=== PATIENT | male | born 1935 | race Caucasian/White ===

== ENCOUNTER → 2016-09-14 | Outpatient (CLI) | payer MEDICARE ==
[~2016-09-14] MED LIST: AMIO200T2 PO; ASPI-983 PO; ASPI-999 PO; ATOR40TA70 PO; CARV3.122 PO; CATHETER FLUSH 10 ML SYR IV PRN; CYAN10006 PO; FERR-74 PO; FINA5TAB6 PO; LEVO100T7 PO; LOSA25TA21 PO; REGADENOSON 0.4 MG/5 ML SYR (LEXISCAN) IV ONE; TAMS0.4C98 PO
[2016-09-14 09:56] VITALS: BP 145/77
[2016-09-14 10:06] VITALS: BP 154/76
--- NOTE | 2016-09-15 07:09 | STRESS TEST ---
DATE OF SERVICE: 09/14/2016 PROCEDURE: Resting and post regadenoson technetium-99M tetrofosmin SPECT CT imaging. CLINICAL DIAGNOSIS: Coronary artery disease. ORDERING PHYSICIAN: Dr. Duff. PRIMARY PHYSICIAN: Baseline images were carried out after injection of 10.51 mCi of technetium-99M tetrofosmin. This was followed by 0.4 mg regadenoson and 30.7 mCi technetium-99M tetrofosmin for stress imaging. The electrocardiogram showed atrial fibrillation with a controlled ventricular response. There appeared to be intermittent ventricular pacing. Review of images at rest and following stress indicates basal inferolateral akinesis and a fixed perfusion defect. There is global hypokinesis of the left ventricle. Left ventricular ejection fraction is calculated to be 26%. Left ventricular end diastolic volume is 182 mL. TID is absent (1.05). CONCLUSIONS: 1. Basal inferolateral myocardial infarction. 2. Basal inferolateral akinesis. 3. Normal global hypokinesis of the left ventricle. 4. Impairment of global left ventricular systolic function with ejection fraction of 26%. 5. Cardiomegaly. Job ID: [id number] DocumentID: [id number] Dictated Date: 09/14/2016 15:29:11 Manager Service Desk Date: 09/15/2016 04:46:01 Dictated By: MADYSON DUFF MD, MA, FACP, FACC,
== END ==
LOC: CARD 07:52
PROVIDERS: ATTEND Internal Medicine Cardiovascular Disease
DX: I25.10 Atherosclerotic heart disease of native coronary artery without angina pectoris (principal); I25.5 Ischemic cardiomyopathy
CPT/HCPCS: 78452; 93017

== ENCOUNTER → 2016-10-19 | Outpatient (CLI) | payer MEDICARE ==
[~2016-10-19] MED LIST changes: -CATHETER FLUSH 10 ML SYR IV PRN; -REGADENOSON 0.4 MG/5 ML SYR (LEXISCAN) IV ONE
--- NOTE | 2016-10-19 16:19 | Diagnostic Imaging Report ---
PA and lateral views of the chest. INDICATION: Dyspnea. COMPARISON: 12/12/2015. FINDINGS: There is bibasilar atelectasis or infiltrate with inqya-ds-hscsfnen effusion seen. There is minimal vascular congestion. The heart size is mildly enlarged. Sternotomy wires, post CABG changes, and pacemaker with two cardiac leads are seen. The haim and mediastinum appear unremarkable. IMPRESSION: There is bibasilar infiltrate or atelectasis with ritux-gq-gtkcfahu effusion and minimal vascular congestion. Dictated by: Dictated on workstation # [id number]
== END ==
LOC: RAD 14:04
PROVIDERS: ATTEND Family Medicine
DX: J90 Pleural effusion, not elsewhere classified (principal); R91.8 Other nonspecific abnormal finding of lung field
CPT/HCPCS: 71020

== ENCOUNTER → 2016-11-12 | Outpatient (CLI) | payer MEDICARE | LOC: CARD 13:27 | PROVIDERS: ATTEND Internal Medicine Cardiovascular Disease | DX: I50.21 Acute systolic (congestive) heart failure (principal); I25.10 Atherosclerotic heart disease of native coronary artery without angina pectoris; I65.23 Occlusion and stenosis of bilateral carotid arteries; I25.5 Ischemic cardiomyopathy; I70.213 Atherosclerosis of native arteries of extremities with intermittent claudication, bilateral legs; I34.0 Nonrheumatic mitral (valve) insufficiency; Z95.810 Presence of automatic (implantable) cardiac defibrillator; Z86.2 Personal history of diseases of the blood and blood-forming organs and certain disorders involving the immune mechanism | CPT/HCPCS: 93306 ==

== ENCOUNTER → 2016-11-16 | Outpatient (CLI) | payer MEDICARE ==
--- NOTE | 2016-11-16 13:10 | Diagnostic Imaging Report ---
3 views of the lumbar spine. INDICATION: Fall. FINDINGS: There is a compression fracture involving L1 vertebral body with 20% vertebral body height loss. This could be acute. The other vertebral body heights are preserved. There is no significant disc height loss seen. Anterior osteophytes are noted in the mid/upper lumbar spine levels. There are mild sclerotic changes at the SI joints noted with question of fusion of the SI joints bilaterally at the superior aspect of the joint. There are prominent atherosclerotic calcifications in the aortoiliac vessels. IMPRESSION: 20% compression fracture of L1 vertebral body, could be acute. The findings were called to Dr. Mercedes at time of dictation. Dictated by: Dictated on workstation # [id number]
== END ==
LOC: RAD 09:41
PROVIDERS: ATTEND Family Medicine
DX: S32.010A Wedge compression fracture of first lumbar vertebra, initial encounter for closed fracture (principal); W19.XXXA Unspecified fall, initial encounter; Y99.8 Other external cause status
CPT/HCPCS: 72100

== ENCOUNTER → 2017-05-02 | Outpatient (CLI) | payer MEDICARE ==
[~2017-05-02] MED LIST changes: -FERR-74 PO; +FERR325T18 PO
--- NOTE | 2017-05-02 10:11 | Diagnostic Imaging Report ---
INDICATION: Sinus drainage. Time of exam 9:58 AM The visualized frontal, ethmoid, maxillary and sphenoid sinuses appear clear. No mucosal thickening or air-fluid levels are detected. IMPRESSION: No evidence of sinusitis. Dictated by: Dictated on workstation # [id number]
== END ==
LOC: RAD 09:24
PROVIDERS: ATTEND Family Medicine
DX: J34.89 Other specified disorders of nose and nasal sinuses (principal)
CPT/HCPCS: 70220

== ENCOUNTER → 2017-06-28 | Outpatient (CLI) | payer MEDICARE ==
--- NOTE | 2017-06-28 14:53 | Diagnostic Imaging Report ---
INDICATION: Chronic kidney disease. FINDINGS: Right kidney measures 10.4 x 5.7 x 5.4 cm and the left kidney measures 12.1 x 5.8 x 4.9 cm. Cortical thickness and echogenicity appears normal. No calculi or hydronephrosis is seen. Urinary bladder is unremarkable. Bilateral ureteral jets were visualized. IMPRESSION: Unremarkable renal ultrasound. Dictated by: Dictated on workstation # [id number]
== END ==
LOC: RAD 14:21
PROVIDERS: ATTEND Internal Medicine Nephrology
DX: N18.3 Chronic kidney disease, stage 3 (moderate) (principal); E55.9 Vitamin D deficiency, unspecified; I50.21 Acute systolic (congestive) heart failure
CPT/HCPCS: 76770

== ENCOUNTER → 2017-06-28 | Outpatient (CLI) | payer MEDICARE ==
--- NOTE | 2017-06-28 16:02 | Diagnostic Imaging Report ---
INDICATION: Allergic rhinitis. TECHNIQUE: Two-view chest at 11 00 a.m. CORRELATION STUDY: 10/19/2016. FINDINGS: Post sternotomy and coronary artery bypass. Left-sided pacemaker stable. Heart size, mediastinum, and vasculature are overall relatively normal on follow-up. Likely chronic-type changes about the lung parenchyma. No infiltrate. Asymmetric areas of eventration about the diaphragm. This is most pronounced posteriorly on the left. Mildly advanced degenerative changes about the thoracic spine with disc space narrowing and endplate osteophyte formation. Compressed lower thoracic vertebral body is noted appearing likely nonacute. IMPRESSION: 1. Surgical changes of the chest. Negative for acute abnormality. Dictated by: Dictated on workstation # [id number]
== END ==
LOC: RAD 10:32
PROVIDERS: ATTEND Nurse Practitioner Family
DX: J30.9 Allergic rhinitis, unspecified (principal); Z98.890 Other specified postprocedural states
CPT/HCPCS: 71046

== ENCOUNTER → 2017-07-06 | Outpatient (CLI) | payer MEDICARE ==
[~2017-07-06] MED LIST changes: +RT-ALBUTEROL SULF 2.5 MG/3 ML PRE-MIX VIAL INH ONE
== END ==
LOC: RT 09:18
PROVIDERS: ATTEND Nurse Practitioner Family
DX: R05 Cough (principal); J30.9 Allergic rhinitis, unspecified
CPT/HCPCS: 94060; 94640; 94726; 94729

== ENCOUNTER → 2017-07-20 | Outpatient (CLI) | payer MEDICARE ==
[~2017-07-20] MED LIST changes: -RT-ALBUTEROL SULF 2.5 MG/3 ML PRE-MIX VIAL INH ONE
== END ==
LOC: CARD 12:32
PROVIDERS: ATTEND Nurse Practitioner Family
DX: I25.5 Ischemic cardiomyopathy (principal)
CPT/HCPCS: 93306

== ENCOUNTER → 2017-08-29 | Outpatient (CLI) | payer MEDICARE ==
[~2017-08-29] MED LIST changes: +ALBU18HF2 IH; -AMIO200T2 PO; +AMIO200T4 PO; +CETI10TA17 PO; +FURO80TA3 PO; +IOHEXOL 350 MG/ML 100 ML (OMNIPAQUE 350) VIAL IV ONE; +MONT10TA24 PO; +NS 250 ML (IVPB) BAG IV ONE
--- NOTE | 2017-08-29 11:06 | Diagnostic Imaging Report ---
PROCEDURE: CT angiography of the chest with contrast. TECHNIQUE: Multiple contiguous axial images were obtained through the chest after uneventful bolus administration of intravenous contrast. Reconstructed CTA MIP acquisitions were also performed. INDICATION: Difficulty breathing. FINDINGS: There is minimal dependent atelectasis in the lung bases. There is no pleural or pericardial fluid. There is no pneumothorax. Thoracic aorta is normal in caliber and without evidence of dissection. There are no filling defects seen within the pulmonary arteries to suggest pulmonary embolism. There is no pathologically enlarged adenopathy in the chest. There are coronary artery calcifications. There is cardiomegaly. There is cholelithiasis. The remainder of intra-abdominal structures are unremarkable. There are degenerative changes in the spine. There is a chronic appearing L1 compression fracture. IMPRESSION: Cardiomegaly and coronary artery calcifications. No evidence of pulmonary embolism or aortic dissection. Chronic L1 compression fracture. Cholelithiasis. Dictated by: Dictated on workstation # [id number]
== END ==
LOC: RAD 09:58
PROVIDERS: ATTEND Nurse Practitioner Family
DX: I51.7 Cardiomegaly (principal); I25.10 Atherosclerotic heart disease of native coronary artery without angina pectoris; R94.2 Abnormal results of pulmonary function studies
CPT/HCPCS: 71275

== ENCOUNTER 2017-08-30 19:46 | Outpatient (CLI) | payer MEDICARE ==
[~2017-08-30 19:46] MED LIST changes: -ALBU18HF2 IH; -CETI10TA17 PO; -FURO80TA3 PO; -IOHEXOL 350 MG/ML 100 ML (OMNIPAQUE 350) VIAL IV ONE; -MONT10TA24 PO; -NS 250 ML (IVPB) BAG IV ONE
== END 2017-08-31 06:10 | disposition home or self-care (01) ==
LOC: SLEEP 19:46
PROVIDERS: ATTEND Nurse Practitioner Family
DX: G47.50 Parasomnia, unspecified (principal); R05 Cough
CPT/HCPCS: 95810

== ENCOUNTER 2017-09-15 12:14 | Outpatient (CLI) | payer MEDICARE ==
[~2017-09-15] VITALS: Ht 171.4 cm; Wt 60.8 kg
[~2017-09-15 12:14] MED LIST changes: -ALBU18HF2 IH; -CETI10TA17 PO; -FURO80TA3 PO; -MONT10TA24 PO
[2017-09-15] MEDS ORDERED: ALBU18HF2 IH (14:15)
[2017-09-15] MEDS ORDERED: FURO80TA3 PO (14:15)
[2017-09-15] MEDS ORDERED: CETI10TA17 PO (14:15)
[2017-09-15] MEDS ORDERED: MONT10TA24 PO (14:15)
== END 2017-09-15 14:17 | disposition home or self-care (01) ==
LOC: PREOP 12:14
PROVIDERS: ATTEND Internal Medicine Critical Care Medicine
DX: Z01.818 Encounter for other preprocedural examination (principal)

== ENCOUNTER → 2017-09-15 | Outpatient (CLI) | payer MEDICARE ==
[~2017-09-15] MED LIST changes: +ALBU18HF2 IH; +CETI10TA17 PO; +FURO80TA3 PO; +MONT10TA24 PO
[2017-09-15 12:35] LABS: BASOPHILS % (AUTO) 0 % (0-10); EOSINOPHILS # (AUTO) 0.1 10^3/uL (0.0-0.3); EOSINOPHILS % (AUTO) 1 % (0-10); HEMATOCRIT 29 % (40-54); HEMOGLOBIN 9.5 G/DL (13.3-17.7); LYMPHOCYTES # (AUTO) 1.1 X 10^3 (1.0-4.0); LYMPHOCYTES % (AUTO) 18 % (12-44); MEAN CORPUSCULAR HEMOGLOBIN 32 PG (25-34); MEAN CORPUSCULAR HGB CONC 33 G/DL (32-36); MEAN CORPUSCULAR VOLUME 99 FL (80-99); MEAN PLATELET VOLUME 9.6 FL (7.4-10.4); MONOCYTES # (AUTO) 0.5 X 10^3 (0.0-1.0); MONOCYTES % (AUTO) 9 % (0-12); NEUTROPHILS # (AUTO) 4.4 X 10^3 (1.8-7.8); NEUTROPHILS % (AUTO) 71 % (42-75); PLATELET COUNT 315 10^3/uL (130-400); RED BLOOD COUNT 2.96 10^6/uL (4.35-5.85); RED CELL DISTRIBUTION WIDTH 17.1 % (10.0-14.5); WHITE BLOOD COUNT 6.1 10^3/uL (4.3-11.0)
[2017-09-16 06:54] LABS: ALTERNARIA MOLD RAST <0.35 kU/L (<0.35); RAGWEED RAST <0.35 kU/L (<0.35)
== END ==
LOC: LAB 11:58
PROVIDERS: ATTEND Nurse Practitioner Family
DX: J98.11 Atelectasis (principal)
CPT/HCPCS: 36415; 82785; 85025; 86003

== ENCOUNTER 2017-09-19 06:35 | Day surgery (SDC) | payer MEDICARE ==
[~2017-09-19] VITALS: Ht 171.4 cm; Wt 60.8 kg
[~2017-09-19 06:35] MED LIST changes: +ALBU18HF2 IH; +CETI10TA17 PO; +FURO80TA3 PO; +MONT10TA24 PO
[2017-09-19] MEDS ORDERED: LIDOCAINE PF 2% 5 ML (XYLOCAINE) VIAL INJ ONE (06:36)
[2017-09-19] MEDS ORDERED: LIDOCAINE JELLY 2% (XYLOCAINE) 30 ML TUBE TOP ONE (06:36)
[2017-09-19] MEDS ORDERED: LIDOCAINE PF 1% 2 ML AMP INJ ONE (06:36)
[2017-09-19] MEDS ORDERED: NS IV 500 ML 500 ML ONE (06:49)
--- NOTE | 2017-09-19 06:58 | Pre-Op Note & Conscious Sedat ---
Pre-Operative Progress Note H&P Reviewed The H&P was reviewed, patient examined and no changes noted. Date H&P Reviewed: Sep 19, 2017 Time H&P Reviewed: 06:58 Conscious Sedation Pre-Proced Time Reviewed: 06:57 ASA Class: 3 Airway Mallampati Classification: (chickaloon appropriate class) I. II. III, IV Lungs Heart ASA score ASA 1: a normal healthy patient ASA 2: a patient with a mild systemic disease (mid diabetes, controlled hypertension, obesity ASA 3: a patient with a severe systemic disease that limits activity (angina , COPD, prior Myocardial infarction) ASA 4: a patient with an incapacitating disease that is a constant threat to life (CHF, renal failure) ASA 5: a moribund patient not expected to survive 24 hrs. (ruptured aneurysm) ASA 6: a declared brain patient whose organs are being harvested. For emergent operations, add the letter E after the classification Grade 3 Sedation Plan: Analgesia, Amnesia, Plan communicated to team members, Discussed options with patient/fam, Discussed risks with patient/fam Note The patient is an appropriate candidate to undergo the planned procedure, sedation, and anesthesia. The patient immediately re-assessed prior to indication. BEVERLY ESPINOSA DO Sep 19, 2017 06:58
--- NOTE | 2017-09-19 06:58 | Progress Note-Pre Operative ---
Pre-Operative Progress Note H&P Reviewed The H&P was reviewed, patient examined and no changes noted. Time Seen by Provider: 06:57 Date H&P Reviewed: Sep 19, 2017 Time H&P Reviewed: 06:57 Pre-Operative Diagnosis: chronic cough, ILD BEVERLY ESPINOSA DO Sep 19, 2017 06:58
--- NOTE | 2017-09-19 06:59 | Pulmonary Procedures ---
Pulmonary Procedures Date of Procedure Date of Service: Sep 19, 2017 Bronch Bronchoscopy with bronchoalveolar lavage (BAL), transbronchial washes and, brushes. Preop DX ILD chronic cough Postop DX: same Complications: none After informed consent obtained and formal time out pt was sedated using Fentanyl and Versed. Bronchoscope was advanced through the nare and vocal cords. 1% lidocaine was used to anesthetize vocal cords, epiglottis, drew, and left/right main stem bronchus. An anatomical tour was undertaken down to the segmental bronchi bilaterally. No endobronchial lesions noted. From the RML a bronchoalveolar lavage (BAL), transbronchial washes and, brushes were obtained. Pt tolerated procedure well. No complications noted. Stat CXR is pending. BEVERLY ESPINOSA DO Sep 19, 2017 06:59
[2017-09-19] MEDS ORDERED: fentaNYL INJECTION 100 MCG/2 ML AMP ONE (07:11)
[2017-09-19] MEDS ORDERED: MIDAZOLAM 2 MG/2 ML (VERSED) VIAL ONE ×2 (07:11)
[2017-09-19] MEDS ORDERED: NS IV 500 ML 500 ML IV PRN (07:30)
[2017-09-19] MEDS ORDERED: fentaNYL INJECTION 100 MCG/2 ML AMP IVP PRN (07:30)
[2017-09-19] MEDS ORDERED: MIDAZOLAM 2 MG/2 ML (VERSED) VIAL IVP PRN (07:30)
[2017-09-19 07:40] VITALS: BP 154/88
[2017-09-19 08:00] VITALS: BP 121/61
--- NOTE | 2017-09-19 08:29 | Diagnostic Imaging Report ---
INDICATION: Status post bronchoscopy. TIME OF EXAMINATION: 07:47 a.m. COMPARISON: Correlation is made with prior study from 06/28/2017. FINDINGS: Changes of median sternotomy and CABG are noted. Cardiac defibrillator is in place. Patient has developed some infiltrate in the right lung. There is some mild left basilar infiltrate or atelectasis as well. No effusion is seen. No pneumothorax is identified. IMPRESSION: 1. No evidence of pneumothorax, status post bronchoscopy. 2. Bilateral infiltrate/atelectasis. Dictated by: Dictated on workstation # [id number]
[2017-09-19 08:55] VITALS: BP 126/77
[2017-09-19 09:34] VITALS: BP 126/77
--- NOTE | 2017-09-19 09:54 | Diagnostic Imaging Report ---
Indication: Bronchoscopy. Intraoperative fluoroscopy used by Dr. Simpson for bronchoscopy. Intraoperative views demonstrate bronchoscope over the right hilum. 11 seconds of fluoroscopy time was used. Impression: Intraoperative fluoroscopy used for bronchoscopy by Dr. Simpson. 11 seconds of fluoroscopy time was used. Dictated by: Dictated on workstation # [id number]
== END 2017-09-19 09:00 | disposition home or self-care (01) ==
LOC: ENDO 06:35
PROVIDERS: ATTEND Internal Medicine Critical Care Medicine
DX: J84.9 Interstitial pulmonary disease, unspecified (principal); R05 Cough; J98.11 Atelectasis; G47.50 Parasomnia, unspecified; J30.9 Allergic rhinitis, unspecified; G47.33 Obstructive sleep apnea (adult) (pediatric)
CPT/HCPCS: 71045; 87070; 87101; 87116; 87205; 94640

== ENCOUNTER → 2018-06-14 | Outpatient (CLI) | payer MEDICARE ==
[~2018-06-14] MED LIST changes: -LOSA25TA21 PO; +LOSA25TA41 PO
--- NOTE | 2018-06-14 12:55 | Diagnostic Imaging Report ---
PROCEDURE: US carotid duplex, bilateral. TECHNIQUE: Multiple real-time grayscale images were obtained over the carotid arteries in various projections, bilaterally. Additional spectral analysis and color Doppler duplex images were also obtained. INDICATION: Carotid arterial disease. FINDINGS: Postop changes of right carotid stent placement are noted. Velocities in the right common and internal carotid arteries are normal. Left carotid system does show some plaquing at the bifurcation as well as proximal internal and external carotid arteries. Velocities on the left are normal as well. No significant velocity elevation or stenosis is seen. Both vertebral arteries show antegrade flow. IMPRESSION: No evidence of a hemodynamically significant stenosis. Parameters based on the consensus panel Nguyen-Scale and Doppler ultrasound criteria published December 2002, Radiology, Volume 229. DOPPLER (peak systolic velocity M/S Right Left CCA .72 .86 ICA Proximal .63 .95 ICA Mid 1.00 1.01 ICA Distal .40 .88 RATIO 1.4 1.2 ECA .62 1.00 VERT .27 .37 Dictated by: Dictated on workstation # [id number]
--- NOTE | 2018-06-14 13:18 | Diagnostic Imaging Report ---
EXAMINATION: Left lower extremity arterial Doppler. INDICATION: Leg pain. TECHNIQUE: Spectral and color-flow imaging of the arterial system of the left lower extremity was performed. COMPARISON: There are no prior arterial Doppler examinations available for comparison. FINDINGS: Reportedly, the patient has had removal of the greater saphenous vein with insertion of a stent. On this study, the stent could not be visualized. There is atherosclerotic plaque throughout the arterial systems of the left lower extremity. There does seem to be fairly good arterial blood flow to the left lower extremity. Triphasic and biphasic waveforms were seen and there is no abrupt alteration of velocities to suggest a hemodynamically significant stenosis. IMPRESSION: 1. There is atherosclerotic disease involving the arterial system of the left lower extremity but there is no evidence for hemodynamically significant stenosis. 2. If clinical concern regarding an underlying abnormality persists and further imaging is desired, then CTA of the aorta with bilateral runoffs would be recommended. Dictated by: Dictated on workstation # [id number]
== END ==
LOC: RAD 10:09
PROVIDERS: ATTEND Internal Medicine Interventional Cardiology
DX: I70.202 Unspecified atherosclerosis of native arteries of extremities, left leg (principal); I65.22 Occlusion and stenosis of left carotid artery; Z95.828 Presence of other vascular implants and grafts
CPT/HCPCS: 93880; 93922; 93926

== ENCOUNTER → 2018-07-11 | Outpatient (CLI) | payer MEDICARE ==
--- NOTE | 2018-07-11 16:17 | Diagnostic Imaging Report ---
INDICATION: Abdominal distention. FINDINGS: There is a fmponpuk-wf-ibllf degree of stool within the left colon and rectum. There are no findings of small bowel dilatation to suggest bowel obstruction. Cardiac defibrillator device is noted. There are chronic interstitial changes at the lung bases. There are advanced degenerative features present throughout the lumbar spine. There is apparent right-sided renal artery stent. There are arthritic changes present within both hips. IMPRESSION: 1. Yxgnvmux-hb-cukxa degree of stool within the left colon and rectum. There is no small bowel dilatation evidence to suggest obstruction. There are no unexpected abdominal calcifications. Advanced degenerative features are noted within the spine and pelvis. Dictated by: Dictated on workstation # [id number]
--- NOTE | 2018-07-11 19:10 | Diagnostic Imaging Report ---
EXAMINATION: PA and lateral chest. COMPARISON: Comparison is made with a prior from June 28, 2017. INDICATION: Abdominal distention. FINDINGS: Patient is status post previous sternotomy and coronary artery bypass grafting. Heart size appears unchanged, but there does appear to be some increased prominence of the central pulmonary vascularity compared to the prior exam. There additionally are background features of chronic interstitial change within the lungs. There are some new patchy regions of opacity demonstrated within the right lung base and within the mid right lung that are asymmetrically present compared to the left and likely reflect regions of infiltrate and pneumonia. There is no significant effusion or evidence of pneumothorax. IMPRESSION: 1. Chronic interstitial changes within the lungs with new patchy opacities within the right mid lung and right lung base suggesting regions of infiltrate and pneumonia. 2. Previous coronary artery bypass grafting with slight interval increase in prominence of the central pulmonary vascularity suggesting a component of central vascular congestion. There is no overt failure. Dictated by: Dictated on workstation # [id number]
== END ==
LOC: RAD 13:51
PROVIDERS: ATTEND Family Medicine
DX: M47.816 Spondylosis without myelopathy or radiculopathy, lumbar region (principal); J98.9 Respiratory disorder, unspecified; R06.02 Shortness of breath; R14.0 Abdominal distension (gaseous); Z95.1 Presence of aortocoronary bypass graft
CPT/HCPCS: 71046; 74018

== ENCOUNTER → 2018-07-17 | Outpatient (CLI) | payer MEDICARE ==
--- NOTE | 2018-07-17 21:35 | Diagnostic Imaging Report ---
PROCEDURE: US Venous Lower Ext Kaveh. TECHNIQUE: Multiple real-time grayscale images were obtained over the lower extremities in various projections, bilaterally. Additional duplex Doppler and color Doppler images were also obtained. INDICATION: Bilateral lower extremity swelling. FINDINGS: Femoropopliteal deep venous system is bilaterally widely patent. No deep or superficial venous thrombus. Normal color flow, waveforms, and compressibility confirmed. No solid or cystic mass. IMPRESSION: Normal negative bilateral lower extremity venous Doppler and ultrasound exam. Dictated by: Dictated on workstation # [id number]
== END ==
LOC: RAD 13:32
DX: M79.89 Other specified soft tissue disorders (principal); I34.0 Nonrheumatic mitral (valve) insufficiency; I50.22 Chronic systolic (congestive) heart failure; R29.898 Other symptoms and signs involving the musculoskeletal system
CPT/HCPCS: 93970

== ENCOUNTER → 2018-08-28 | Outpatient (CLI) | payer MEDICARE | LOC: CARD 08:42 | PROVIDERS: ATTEND Internal Medicine Interventional Cardiology | DX: I08.3 Combined rheumatic disorders of mitral, aortic and tricuspid valves (principal); Z98.890 Other specified postprocedural states; Z95.818 Presence of other cardiac implants and grafts | CPT/HCPCS: 93306 ==

== ENCOUNTER 2018-09-29 10:29 | Inpatient (IN) | payer MEDICARE ==
[~2018-09-29] VITALS: Ht 165.1 cm; Wt 54.9 kg
[2018-09-29] VITALS (7 sets, daily range): BP systolic 111–138; BP diastolic 56–78
[~2018-09-29 10:29] MED LIST changes: +CYAN-41 PO; -CYAN10006 PO
[2018-09-29 10:51] LABS: BASOPHILS % (AUTO) 0 % (0-10); EOSINOPHILS # (AUTO) 0.1 10^3/uL (0.0-0.3); EOSINOPHILS % (AUTO) 3 % (0-10); HEMATOCRIT 22 % (40-54); LYMPHOCYTES % (AUTO) 33 % (12-44); MEAN CORPUSCULAR HEMOGLOBIN 29 PG (25-34); MEAN CORPUSCULAR HGB CONC 29 G/DL (32-36); MEAN CORPUSCULAR VOLUME 98 FL (80-99); MONOCYTES # (AUTO) 0.4 X 10^3 (0.0-1.0); MONOCYTES % (AUTO) 13 % (0-12); NEUTROPHILS # (AUTO) 1.6 X 10^3 (1.8-7.8); NEUTROPHILS % (AUTO) 51 % (42-75); PLATELET COUNT 332 10^3/uL (130-400); RED CELL DISTRIBUTION WIDTH 22.4 % (10.0-14.5); WHITE BLOOD COUNT 3.2 10^3/uL (4.3-11.0)
[2018-09-29 10:56] LABS: HEMOGLOBIN 6.5 G/DL (13.3-17.7); SMEAR SCAN COMMENT YES
[2018-09-29 11:12] LABS: ALBUMIN 2.9 GM/DL (3.2-4.5); BILIRUBIN,TOTAL 0.6 MG/DL (0.1-1.0); CALCIUM 7.4 MG/DL (8.5-10.1); CREATININE SERUM 1.43 MG/DL (0.60-1.30); POTASSIUM 3.9 MMOL/L (3.6-5.0); TOTAL PROTEIN 6.2 GM/DL (6.4-8.2)
--- NOTE | 2018-09-29 11:30 | ED GU-Male ---
General Chief Complaint: - Urinary Stated Complaint: BLOOD IN URINE Nursing Triage Note: PT AMB TO RM 8 WITH COMPLAINT OF BLOOD IN URINE. STATES HAS BEEN GOING ON FOR OVER A WEEK. [facility] WAS SUPPOSE TO DO A UA BUT DID NOT. [facility] HE IS ON HOMEHEALTH FOR ISSUES WITH DEHYDRATION. Source: patient Exam Limitations: no limitations History of Present Illness Date Seen by Provider: Sep 29, 2018 Time Seen by Provider: 11:30 Initial Comments 82-year-old male patient presents to the emergency department with complaints of blood in his urine. Patient reports 5-7 day onset. Patient reports being in the hospital within the last month for "water issues" at [facility]. Patient reports currently being seen by home healthcare for dehydration issues. Patient states he is scheduled to see Dr. Thomas Chavez on Tuesday. Timing/Duration: week, intermittent Location: urethral Activities at Onset: other (urination) Prior Genitourinary Problems: none Allergies and Home Medications Allergies Coded Allergies: niacin (Verified Allergy, Mild, RASH, 08/19/15) Home Medications Apixaban 2.5 Mg Tablet, 2.5 MG PO BID, (Reported) Aspirin 81 Mg Tablet.dr, 81 MG PO DAILY, (Reported) Atorvastatin Calcium 40 Mg Tablet, 40 MG PO HS, (Reported) LAST FILLED #90 01-05-18 Azelastine HCl 137 Mcg/0.137 Ml Arnold.pump, 2 SPRAYS NS BID, (Reported) Finasteride 5 Mg Tablet, 5 MG PO DAILY, (Reported) Furosemide 20 Mg Tablet, 10 MG PO DAILY, (Reported) TAKES 1/2 (20MG) TABLET Ipratropium [place] 15 Ml Naspr, 2 SPRAYS NS QID, (Reported) Levothyroxine Sodium 112 Mcg Tablet, 112 MCG PO DAILY, (Reported) Mexiletine HCl 150 Mg Cap, 150 MG PO BID, (Reported) Tamsulosin HCl 0.4 Mg Cap, 0.4 MG PO HS, (Reported) Patient Home Medication List Home Medication List Reviewed: Yes Review of Systems Review of Systems Constitutional: No chills, No diaphoresis, No dizziness, No fever, No malaise Respiratory: no symptoms reported Cardiovascular: no symptoms reported Gastrointestinal: No abdominal pain, No constipation, No diarrhea, No hematemesis, No loss of appetite, No melena, No nausea, No vomiting Genitourinary: see HPI Musculoskeletal: no symptoms reported Skin: no symptoms reported Psychiatric/Neurological: No Symptoms Reported All Other Systemes Reviewed Negative Unless Noted: Yes (Negative excepted noted.) Past Kapwbqe-Qquhyh-Ocxwgy Hx Past Med/Social Hx: Reviewed Nursing Past Med/Soc Hx Patient Social History Alcohol Use: Denies Use Recreational Drug Use: No Smoking Status: Former Smoker Type Used: Cigarettes Former Smoker, Quit: Aug 18, 1969 Recent Foreign Travel: No Contact w/Someone Who Travel: No Recent Infectious Disease Expo: No Recent Hopitalizations: No Physical Abuse: No Sexual Abuse: No Mistreated: No Fear: No Immunizations Up To Date Date of Pneumonia Vaccine: Aug 18, 2012 Seasonal Allergies Seasonal Allergies: No Past Medical History Surgeries: Yes (pacemaker x2) CABG, Tonsillectomy Respiratory: Yes Cardiac: Yes (pacemaker, hx cabg) Heart Attack, Hypertension Neurological: No Gastrointestinal: No Musculoskeletal: No Endocrine: No Cancer: No Psychosocial: No Integumentary: No Blood Disorders: Yes (anemia) Family Medical History Reviewed Nursing Family Hx Physical Exam Vital Signs Vital Signs - First Documented 09/29/18 10:33 Temp 97.0 Pulse 88 Resp 16 B/P (MAP) 112/55 (74) Pulse Ox 100 O2 Delivery Room Air Capillary Refill : Less Than 3 Seconds Height, Weight, BMI Height: 5'5.00" Weight: 121lbs. 0.0oz. 54.609654dr; 20.7 BMI Method:Stated General Appearance: no apparent distress, thin HEENT: PERRL/EOMI, pharynx normal; No scleral icterus (R), No scleral icterus (L) Neck: supple, normal inspection Cardiovascular: normal peripheral pulses, regular rate, rhythm, no edema, no gallop, no murmur Respiratory: lungs clear, normal breath sounds, no respiratory distress, no accessory muscle use Gastrointestinal: normal bowel sounds, non tender, soft, no organomegaly; No distended Back: normal inspection, no CVA tenderness Extremities: no pedal edema, no calf tenderness, normal capillary refill Neurologic/Psychiatric: alert, normal mood/affect, oriented x 3 Skin: warm/dry, pallor Progress/Results/Core Measures Suspected Sepsis Recent Fever Within 48 Hours: No Infection Criteria Present: None New/Unexplained Altered Menta: No Sepsis Screen: No Definite Risk SIRS Temperature:97.0 Pulse: 88 Respiratory Rate: 16 Laboratory Tests 09/29/18 10:44: White Blood Count 3.2L Blood Pressure 112 /55 Mean: 74 Laboratory Tests 09/29/18 10:44: Creatinine 1.43H, Platelet Count 332, Total Bilirubin 0.6 Results/Orders Lab Results Laboratory Tests Test 09/29/18 10:44 09/29/18 11:27 Range/Units White Blood Count 3.2 L 4.3-11.0 10^3/uL Red Blood Count 2.26 L 4.35-5.85 10^6/uL Hemoglobin 6.5 *L 13.3-17.7 G/DL Hematocrit 22 L 40-54 % Mean Corpuscular Volume 98 80-99 FL Mean Corpuscular Hemoglobin 29 25-34 PG Mean Corpuscular Hemoglobin Concent 29 L 32-36 G/DL Red Cell Distribution Width 22.4 H 10.0-14.5 % Platelet Count 332 130-400 10^3/uL Mean Platelet Volume 9.0 7.4-10.4 FL Neutrophils (%) (Auto) 51 42-75 % Lymphocytes (%) (Auto) 33 12-44 % Monocytes (%) (Auto) 13 H 0-12 % Eosinophils (%) (Auto) 3 0-10 % Basophils (%) (Auto) 0 0-10 % Neutrophils # (Auto) 1.6 L 1.8-7.8 X 10^3 Lymphocytes # (Auto) 1.0 1.0-4.0 X 10^3 Monocytes # (Auto) 0.4 0.0-1.0 X 10^3 Eosinophils # (Auto) 0.1 0.0-0.3 10^3/uL Basophils # (Auto) 0.0 0.0-0.1 10^3/uL Sodium Level 138 135-145 MMOL/L Potassium Level 3.9 3.6-5.0 MMOL/L Chloride Level 108 H 98-107 MMOL/L Carbon Dioxide Level 23 21-32 MMOL/L Anion Gap 7 5-14 MMOL/L Blood Urea Nitrogen 28 H 7-18 MG/DL Creatinine 1.43 H 0.60-1.30 MG/DL Estimat Glomerular Filtration Rate 47 BUN/Creatinine Ratio 20 Glucose Level 129 H 70-105 MG/DL Calcium Level 7.4 L 8.5-10.1 MG/DL Corrected Calcium 8.3 L 8.5-10.1 MG/DL Total Bilirubin 0.6 0.1-1.0 MG/DL Aspartate Amino Transf (AST/SGOT) 15 5-34 U/L Alanine Aminotransferase (ALT/SGPT) 10 0-55 U/L Alkaline Phosphatase 112 40-136 U/L Total Protein 6.2 L 6.4-8.2 GM/DL Albumin 2.9 L 3.2-4.5 GM/DL Smear Scan YES Urine Color YELLOW Urine Clarity CLEAR Urine pH 5 5-9 Urine Specific [place] 1.015 L 1.016-1.022 Urine Protein 1+ H NEGATIVE Urine Glucose (UA) NEGATIVE NEGATIVE Urine Ketones NEGATIVE NEGATIVE Urine Nitrite NEGATIVE NEGATIVE Urine Bilirubin NEGATIVE NEGATIVE Urine Urobilinogen NORMAL NORMAL MG/DL Urine Leukocyte Esterase 1+ H NEGATIVE Urine RBC (Auto) 5+ H NEGATIVE Urine RBC 50-100 H /HPF Urine WBC 5-10 H /HPF Urine Squamous Epithelial Cells NONE /HPF Urine Crystals NONE /LPF Urine Bacteria TRACE /HPF Urine Casts NONE /LPF Urine Mucus NEGATIVE /LPF Urine Culture Indicated YES My Orders Orders - KAEL SIERRA Ct Abdomen/Pelvis Wo (09/29/18 11:49) Ed Iv/Invasive Line Start (09/29/18 11:49) Ns Iv 1000 Ml (Sodium Chloride 0.9%) (09/29/18 11:49) Vital Signs/I&O 09/29/18 10:33 Temp 97.0 Pulse 88 Resp 16 B/P (MAP) 112/55 (74) Pulse Ox 100 O2 Delivery Room Air Capillary Refill : Less Than 3 Seconds Blood Pressure Mean: 74 Diagnostic Imaging Diagonstic Imaging: CT Plain Films/CT/US/NM/MRI: abdomen, pelvis Comments Date of Exam:09/29/18 CT ABDOMEN/PELVIS WO PROCEDURE: CT abdomen and pelvis without contrast. TECHNIQUE: Multiple contiguous axial images were obtained through the abdomen and pelvis without the use of intravenous contrast. Auto Exposure Controls were utilized during the CT exam to meet ALARA standards for radiation dose reduction. INDICATION: Hematuria. No comparison available. FINDINGS: Limited views of the lower thorax reveal cardiomegaly and pacemaker leads. Differential attenuation of myocardium and blood pool is in keeping with anemia. There are small bilateral pleural effusions. Liver is normal. No focal liver lesions are seen. Gallbladder contains stones but no cholecystitis. No biliary ductal dilation. Pancreas, spleen and adrenal glands are normal. No renal stones are seen. No hydronephrosis. Urinary bladder demonstrates a 2.3 x 2.3 cm mass along the left posterolateral bladder wall. Prostate is enlarged. No dilated loops of large or small bowel. No obstruction or inflammation. Appendix is normal. There is no abdominal or pelvic lymphadenopathy. The vasculature is atherosclerotic but the aorta is nonaneurysmal. Bone island is present in the left ilium. No suspicious osseous lesions are seen. There is a moderate T12 compression fracture. IMPRESSION: 1. Mass in the left lateral aspect of the bladder measuring up to 2.3 cm concerning for a bladder neoplasm. Dictated on workstation # [id number] Reviewed: Reviewed by Me (radiology report reviewed by me) Departure Communication (Admissions) Time/Spoke to Admitting Phy: 11:38 Dr. Gonzales graciously accepts pt to his medical service for IVF, transfusion PRBC, and consult Dr. Matamoros. Patient seen and evaluated. Laboratory findings discussed with the patient. Request is examiner to get his from the ED parking lot. He states Iona is in a [employer] iv[employer]. Unable to locate a [employer] Ivis in the emergency department parking lot. No one noted to be sitting in the cars of the ED parking lot. Registration reports patient came into the emergency department by himself. [id number] patient case discussed with Dr. Gonzales with request for CT abdomen/pelvis prior to admission to [facility]. CT abd/pelvis ordered. Patient's and daughter are at the pts bedside. diagnostic findings, laboratory findings,and plan for admission discussed with patient. All verbalize understanding and agree with the treatment plan. plan for admit discussed with dr. colin. Impression Primary Impression: Anemia due to acute blood loss Additional Impressions: Renal insufficiency Urinary tract infection Qualified Codes: N30.01 - Acute cystitis with hematuria Mass of urinary bladder Hematuria Qualified Codes: R31.9 - Hematuria, unspecified Disposition: ADMITTED INPATIENT Condition: Stable Admissions Decision to Admit Reason: Admit from ER (General) Decision to Admit/Date: Sep 29, 2018 Time/Decision to Admit Time: 11:38 Departure-Patient Inst. Referrals: SHON GONZALES MD (PCP/Family) Primary Care Physician KAEL SIERRA Sep 29, 2018 11:30
[2018-09-29 11:31] LABS: BILIRUBIN,URINE NEGATIVE (NEGATIVE); CLARITY,URINE CLEAR; COLOR,URINE YELLOW; GLUCOSE, URINE (UA) NEGATIVE (NEGATIVE); KETONES,URINE NEGATIVE (NEGATIVE); LEUKOCYTE ESTERASE ,URINE 1+ (NEGATIVE); NITRITE,URINE NEGATIVE (NEGATIVE); PH,URINE 5 (5-9); PROTEIN,URINE 1+ (NEGATIVE); UROBILINOGEN,URINE NORMAL (NORMAL)
[2018-09-29] MEDS ORDERED: NS IV 1000 ML 1,000 ML IV ONE (11:49)
[2018-09-29 11:52] LABS: BACTERIA,URINE TRACE /HPF; RBC,URINE 50-100 /HPF
--- NOTE | 2018-09-29 12:28 | Diagnostic Imaging Report ---
PROCEDURE: CT abdomen and pelvis without contrast. TECHNIQUE: Multiple contiguous axial images were obtained through the abdomen and pelvis without the use of intravenous contrast. Auto Exposure Controls were utilized during the CT exam to meet ALARA standards for radiation dose reduction. INDICATION: Hematuria. No comparison available. FINDINGS: Limited views of the lower thorax reveal cardiomegaly and pacemaker leads. Differential attenuation of myocardium and blood pool is in keeping with anemia. There are small bilateral pleural effusions. Liver is normal. No focal liver lesions are seen. Gallbladder contains stones but no cholecystitis. No biliary ductal dilation. Pancreas, spleen and adrenal glands are normal. No renal stones are seen. No hydronephrosis. Urinary bladder demonstrates a 2.3 x 2.3 cm mass along the left posterolateral bladder wall. Prostate is enlarged. No dilated loops of large or small bowel. No obstruction or inflammation. Appendix is normal. There is no abdominal or pelvic lymphadenopathy. The vasculature is atherosclerotic but the aorta is nonaneurysmal. Bone island is present in the left ilium. No suspicious osseous lesions are seen. There is a moderate T12 compression fracture. IMPRESSION: 1. Mass in the left lateral aspect of the bladder measuring up to 2.3 cm concerning for a bladder neoplasm. Dictated by: Dictated on workstation # [id number]
[2018-09-29] MEDS ORDERED: NS IV 1000 ML 1,000 ML ONE (14:32)
--- NOTE | 2018-09-29 14:32 | NUR ---
RENY ESTRADA admitted to room 416-1, with an admitting diagnosis of ANEMIA, on 09/29/18 from ED via W/C, accompanied by FAMILY AND STAFF. RENY ESTRADA introduced to surroundings, call light, bed controls, phone, TV, temperature control, lights, meal times, smoking policy, visitor policy, side rail policy, bathrooms and showers. Patient Rights given to patient in the handbook. RENY ESTRADA verbalizes understanding that [facility] is not responsible for the loss or damage to any personal effects or valuables that are kept in the patients possession during their hospitalization.
[2018-09-29] MEDS ORDERED: FUROSEMIDE 40 MG/4 ML INJ (LASIX) IV NR (14:38)
[2018-09-29] MEDS ORDERED: CATHETER FLUSH 10 ML SYR IV PRN (14:45)
[2018-09-29] MEDS ORDERED: ONDANSETRON 4 MG/2 ML (SDV) Z0FRAN IV PRN (14:45)
--- NOTE | 2018-09-29 14:50 | NUR ---
Pastoral care visit.
--- NOTE | 2018-09-29 14:56 | History & Physicial ---
History of Present Illness History of Present Illness Reason for visit/HPI 82-year-old male presents to [facility] emergency department during the morning of September 29, 2018 with gross blood during urination. Apparently this started about 5 days ago. He does have home health come to his house since he recently was dismissed from [facility] following cardiac surgery. He does not voice any pain on urination. There is no reports of any fever. Patient has been pretty weak that over the past few years his health has deteriorated. Date of Admission Sep 29, 2018 at 13:29 Date Seen by a Provider: Sep 29, 2018 Time Seen by a Provider: 15:15 I consulted on this patient on 09/29/18 14:51 Attending Physician Jonh Gonzales MD Admitting Physician Jonh Gonzales MD Consult Allergies and Home Medications Allergies Coded Allergies: niacin (Verified Allergy, Mild, RASH, 08/19/15) Home Medications Albuterol Sulfate 18 Gm Hfa.aer.ad, 2 PUFF IH QID, (Reported) Amiodarone HCl 200 Mg Tablet, 100 MG PO DAILY, (Reported) TAKES 1/2 (200MG) TABLET Aspirin 81 Mg Tab.chew, 81 MG PO DAILY Prescribed by: MADYSON PENA on 08/19/15 1144 Atorvastatin Calcium 40 Mg Tablet, 40 MG PO HS, (Reported) Carvedilol 3.125 Mg Tablet, 3.125 MG PO BID, (Reported) Cetirizine HCl 10 Mg Tablet, 10 MG PO DAILY, (Reported) Ferrous Sulfate 325 Mg Tablet, 325 MG PO DAILY, (Reported) Finasteride 5 Mg Tablet, 5 MG PO DAILY, (Reported) Furosemide 80 Mg Tablet, 80 MG PO DAILY, (Reported) Levothyroxine Sodium 100 Mcg Tablet, 100 MCG PO DAILY, (Reported) Losartan Potassium 25 Mg Tablet, 25 MG PO DAILY, (Reported) Montelukast Sodium 10 Mg Tablet, 10 MG PO HS, (Reported) Tamsulosin HCl 0.4 Mg Cap, 0.4 MG PO HS, (Reported) Patient Home Medication List Home Medication List Reviewed: Yes Past Xnlvzjc-Osxpzd-Euazvw Hx Patient Social History Marrital Status: Alcohol Use: Denies Use Recreational Drug Use: No Smoking Status: Former Smoker Former Smoker, Quit: Aug 18, 1969 Type Used: Cigarettes Recent Foreign Travel: No Contact w/other who traveled: No Recent Hopitalizations: No Recent Infectious Disease Expo: No Immunizations Up To Date Date of Pneumonia Vaccine: Aug 18, 2012 Seasonal Allergies Seasonal Allergies: No Surgeries Yes (pacemaker x2) CABG, Tonsillectomy Respiratory Yes Cardiovascular Yes (pacemaker, hx cabg) Heart Attack, Hypertension Neurological No Gastrointestinal No Musculoskeletal No Endocrine History of Endocrine Disorders: No Cancer No Psychosocial History of Psychiatric Problem: No Integumentary History of Skin or Integumenta: No Blood Transfusions History of Blood Disorders: Yes (anemia) Review of Systems Constitutional: see HPI Physical Exam Vital Signs Vital Signs - First Documented 09/29/18 10:33 Temp 97.0 Pulse 88 Resp 16 B/P (MAP) 112/55 (74) Pulse Ox 100 O2 Delivery Room Air Capillary Refill : Less Than 3 Seconds Height, Weight, BMI Height: 5'5.00" Weight: 121lbs. 0.0oz. 54.033340st; 20.1 BMI Method:Stated General Appearance: No Apparent Distress, Cachetic HEENT: Pharynx Normal Neck: Non Tender Respiratory: Lungs Clear Cardiovascular: Regular Rate, Rhythm Gastrointestinal: Soft Rectal: Deferred Comments NAME: RENY ESTRADA [facility] REC#: [id number] PT STATUS: ADM IN : 1935 PHYSICIAN: KAEL SIERRA ADMIT DATE: 09/29/18 Signed Date of Exam: 09/29/18 CT ABDOMEN/PELVIS WO PROCEDURE: CT abdomen and pelvis without contrast. TECHNIQUE: Multiple contiguous axial images were obtained through the abdomen and pelvis without the use of intravenous contrast. Auto Exposure Controls were utilized during the CT exam to meet ALARA standards for radiation dose reduction. INDICATION: Hematuria. No comparison available. FINDINGS: Limited views of the lower thorax reveal cardiomegaly and pacemaker leads. Differential attenuation of myocardium and blood pool is in keeping with anemia. There are small bilateral pleural effusions. Liver is normal. No focal liver lesions are seen. Gallbladder contains stones but no cholecystitis. No biliary ductal dilation. Pancreas, spleen and adrenal glands are normal. No renal stones are seen. No hydronephrosis. Urinary bladder demonstrates a 2.3 x 2.3 cm mass along the left posterolateral bladder wall. Prostate is enlarged. No dilated loops of large or small bowel. No obstruction or inflammation. Appendix is normal. There is no abdominal or pelvic lymphadenopathy. The vasculature is atherosclerotic but the aorta is nonaneurysmal. Bone island is present in the left ilium. No suspicious osseous lesions are seen. There is a moderate T12 compression fracture. IMPRESSION: 1. Mass in the left lateral aspect of the bladder measuring up to 2.3 cm concerning for a bladder neoplasm. Dictated by: Dictated on workstation # [id number] Dict: 09/29/18 1210 Trans: 09/29/18 1343 Interpreted by: MANOLO CASH MD Electronically signed by: MANOLO CASH MD 09/29/18 1343 Assessment/Plan Assessment and Plan 1. Anemia and this is acute blood loss -patient has received 1 unit of blood in the ER. -His hemoglobin will be rechecked every 6 hours 2. Hematuria gross -continue to monitor clinically -Patient has an appointment on October [address] Chavez urology in [facility] 3. 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 Renal insufficiency -iV fluids and monitor creatinine 5. Urinary tract infection -Initiation of IV antibiotic, ceftriaxone Admission Diagnosis 1. Anemia and this is acute blood loss 2. Hematuria gross 3. 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 Renal insufficiency 5. Urinary tract infection Admission Status: Inpatient Order (span 2 midnights) Reason for Inpatient Admission: blood transfusion and monitoring of hemoglobin. Clinical Quality Measures DVT/VTE Risk/Contraindication: Risk Factor Score Per Nursin RFS Level Per Nursing on Admit: 3=High JONH GONZALES MD Sep 29, 2018 14:56
[2018-09-29] MEDS ORDERED: cefTRIAXone 1,000 MG/SWFI 10 ML IV PUSH IV SCH ×2 (15:00)
[2018-09-29] MEDS: NS IV 1000 ML 1,000 ML IV SCH (15:30)
[2018-09-29] MEDS ORDERED: FURO20TA4 PO (15:41)
[2018-09-29] MEDS ORDERED: ASPI-983 PO (15:41)
[2018-09-29] MEDS ORDERED: LEVO112T55 PO (15:41)
[2018-09-29] MEDS ORDERED: NFIPRATRNS NS (15:41)
[2018-09-29] MEDS ORDERED: APIX2.5T PO (15:41)
[2018-09-29] MEDS ORDERED: NF-MEXI150 PO (15:41)
[2018-09-29] MEDS ORDERED: TORS20TA3 PO (15:41)
[2018-09-29] MEDS ORDERED: AZEL137S11 NS (15:45)
[2018-09-29] MEDS ORDERED: ATOR40TA70 PO (15:45)
[2018-09-29] MEDS ORDERED: TAMS0.4C98 PO (15:45)
--- NOTE | 2018-09-29 15:49 | NUR ---
SPOKE WITH THE PATIENT ABOUT HIS MEDICATIONS. HE STATES HE DOES NOT KNOW THEM BY NAME AND HIS LIST IS AT HOME. HE STATES HE WON'T BE ABLE TO HAVE ANYONE BRING HIS LIST UP UNTIL TOMORROW. DR. GONZALES ARRIVED AND BROUGHT A LIST FROM HIS OFFICE. HE STATES HE WENT OVER IT IN DETAIL WITH THE PATIENT RECENTLY AFTER [facility] VISIT AND THIS IS THE LIST THEY ENDED UP WITH. I ENTERED IT ON THE MED REC JUST THE LIST FROM HIS OFFICE HAD IT. NOTE THE FOLLOWING OBSERVATIONS FROM THE EXT MED HX: FLOMAX AND LIPITOR WERE ON THE LIST HOWEVER ARE PAST DUE ACCORDING TO THE EXT MED HX 05-29-18 FLOMAX 0.4MG #90 01-05-18 LIPITOR 40MG #90 AMIODARONE AND TORSEMIDE HAVE BEEN FILLED BUT ARE NOT ON THE LIST, I DID NOT INCLUDE THEM ON THE MED REC 07-24-18 TORSEMIDE 20MG #360 - 90 DAYS 07-18-18 AMIODARONE 200MG #180 FOR 90 DAYS ALSO REPORTED ON THE LIST WAS AZELASTINE SPRAY, I DO NOT SEE THIS ON THE EXT MED HX BUT DID INCLUDE IT ON THE MED REC.
[2018-09-29] MEDS ORDERED: LIDOCAINE UROJET 2% GEL 10 ML PKG TOP NR (17:15)
--- NOTE | 2018-09-29 17:30 | NUR ---
DR. GONZALES HERE AND STATED TO GET H & H IN AM. Q6H H & H DC'D
--- NOTE | 2018-09-29 23:45 | NUR ---
SEDIMENT BLOOD NOTICED IN THE TUBE. IRRIGATED CATHETER WHIT 60ML PER NIKHIL LUND. LARGE BLOOD CLOT PULLED BACK. WILL CONTINUO TO MONITOR
[2018-09-30] VITALS (11 sets, daily range): BP systolic 120–145; BP diastolic 58–70
[2018-09-30] MEDS: NS IV 1000 ML 1,000 ML IV SCH ×4 (01:03→22:23)
[2018-09-30 05:57] LABS: BASOPHILS % (AUTO) 0 % (0-10); EOSINOPHILS # (AUTO) 0.1 10^3/uL (0.0-0.3); EOSINOPHILS % (AUTO) 1 % (0-10); HEMATOCRIT 24 % (40-54); HEMOGLOBIN 7.3 G/DL (13.3-17.7); LYMPHOCYTES % (AUTO) 24 % (12-44); MEAN CORPUSCULAR HEMOGLOBIN 29 PG (25-34); MEAN CORPUSCULAR HGB CONC 30 G/DL (32-36); MEAN CORPUSCULAR VOLUME 95 FL (80-99); MEAN PLATELET VOLUME 9.4 FL (7.4-10.4); MONOCYTES # (AUTO) 0.6 X 10^3 (0.0-1.0); MONOCYTES % (AUTO) 15 % (0-12); NEUTROPHILS # (AUTO) 2.6 X 10^3 (1.8-7.8); NEUTROPHILS % (AUTO) 61 % (42-75); PLATELET COUNT 317 10^3/uL (130-400); RED CELL DISTRIBUTION WIDTH 21.6 % (10.0-14.5); WHITE BLOOD COUNT 4.3 10^3/uL (4.3-11.0)
[2018-09-30 06:18] LABS: ALBUMIN 2.6 GM/DL (3.2-4.5); BILIRUBIN,TOTAL 0.6 MG/DL (0.1-1.0); CALCIUM 7.2 MG/DL (8.5-10.1); CREATININE SERUM 1.22 MG/DL (0.60-1.30); POTASSIUM 4.4 MMOL/L (3.6-5.0); TOTAL PROTEIN 5.5 GM/DL (6.4-8.2)
[2018-09-30 12:23] LABS: HEMOGLOBIN 7.5 G/DL (13.3-17.7)
--- NOTE | 2018-09-30 14:37 | Progress Note - Hospitalist ---
Subjective HPI/CC On Admission Date Seen by Provider: Sep 30, 2018 Time Seen by Provider: 14:32 Patient was pleasantly confused voices no complaints but was concerned that he had not seen his . Shortly after the interview his came in resulting in visible patient relief. He denied chest pain bladder pain chills fever or f lank pain. He had Corado catheter in place with gross hematuria noted. Objective Exam Vital Signs Vital Signs Date Time Temp Pulse Resp B/P (MAP) Pulse Ox O2 Delivery O2 Flow Rate FiO2 09/30/18 12:29 74 09/30/18 12:00 99.1 18 120/64 (82) 97 Room Air Capillary Refill : Less Than 3 Seconds General Appearance: No Apparent Distress, Chronically ill, Thin Respiratory: Chest Non Tender, No Accessory Muscle Use, No Respiratory Distress, Other (Diminished breath sounds both bases no rales or rhonchi or wheezing noted.) Cardiovascular: Regular Rate, Rhythm, No Edema Gastrointestinal: Normal Bowel Sounds, No Organomegaly, No Pulsatile Mass, Non Tender, Soft Results/Procedures Lab Laboratory Tests 09/30/18 05:06 09/30/18 12:14 Patient resulted labs reviewed. Assessment/Plan Assessment and Plan Assess & Plan/Chief Complaint A/P 1. Anemia multifactorial aggravated by gross hematuria but highly likely to be the sole cause especially in light of the fact that patient's MCV is normal we'll obtain anemia analyzer and hold all anticoagulant therapy. 2. 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 Due to this patient's frailty discussed consult with Dr. Matamoros which they are agreeable to. 3. History of coronary artery disease with past bypass and pacemaker placement no current evidence to suggest heart failure. 4. Dehydration poor by mouth intake continue IV fluids patient encouraged to increase by mouth intake. Clinical Quality Measures DVT/VTE Risk/Contraindication: Risk Factor Score Per Nursin RFS Level Per Nursing on Admit: 3=High CLARISSA MCGEE MD Sep 30, 2018 14:37
[2018-09-30] MEDS ORDERED: NS IV 500 ML 500 ML IV SCH (15:47)
--- NOTE | 2018-09-30 21:43 | NUR ---
PEDROZA CATHETER IRRIGATED AT THIS TIME. FLUSHED WITH 60ML STERILE WATER, 50 ML RETURN WITH 3 SMALL CLOTS NOTED. WILL CONTINUE TO MONITOR
[2018-10-01] VITALS (8 sets, daily range): BP systolic 122–144; BP diastolic 58–73
[2018-10-01] MEDS: NS IV 1000 ML 1,000 ML IV SCH ×2 (00:14→03:50)
--- NOTE | 2018-10-01 03:22 | NUR ---
RN NOTIFIED BY APPEALS REVIEWER VETERAN THAT PT HAS HAD A FEW QUADRAGEMINAL PVC'S. PT RESTING IN BED, RESPIRATIONS EVEN AND UNLABORED. NO DISTRESS NOTED. APPEALS REVIEWER VETERAN STATED SHE WILL NOTIFY RN IF PT BEGINS TO EXPERIENCE MORE PVCS. THIS RN WILL CONTINUE TO MONITOR PT.
[2018-10-01] MEDS: LEVOTHYROXINE 112 MCG (LEVOTHROID) TAB PO SCH (05:09)
[2018-10-01 06:00] LABS: BASOPHILS % (AUTO) 0 % (0-10); EOSINOPHILS % (AUTO) 0 % (0-10); HEMATOCRIT 30 % (40-54); HEMOGLOBIN 9.3 G/DL (13.3-17.7); LYMPHOCYTES % (AUTO) 19 % (12-44); MEAN CORPUSCULAR HEMOGLOBIN 29 PG (25-34); MEAN CORPUSCULAR HGB CONC 32 G/DL (32-36); MEAN CORPUSCULAR VOLUME 92 FL (80-99); MEAN PLATELET VOLUME 9.4 FL (7.4-10.4); MONOCYTES # (AUTO) 0.8 X 10^3 (0.0-1.0); MONOCYTES % (AUTO) 14 % (0-12); NEUTROPHILS # (AUTO) 3.6 X 10^3 (1.8-7.8); NEUTROPHILS % (AUTO) 66 % (42-75); PLATELET COUNT 317 10^3/uL (130-400); RED CELL DISTRIBUTION WIDTH 21.5 % (10.0-14.5); WHITE BLOOD COUNT 5.4 10^3/uL (4.3-11.0)
[2018-10-01 06:14] LABS: ABSOLUTE RETIC # 42 10e9/L (24-90); BASOPHILS % (AUTO) 0 % (0-10); EOSINOPHILS % (AUTO) 0 % (0-10); HEMATOCRIT 30 % (40-54); HEMOGLOBIN 9.5 G/DL (13.3-17.7); LYMPHOCYTES # (AUTO) 1.1 X 10^3 (1.0-4.0); LYMPHOCYTES % (AUTO) 21 % (12-44); MEAN CORPUSCULAR HEMOGLOBIN 29 PG (25-34); MEAN CORPUSCULAR HGB CONC 31 G/DL (32-36); MEAN CORPUSCULAR VOLUME 92 FL (80-99); MEAN PLATELET VOLUME 9.3 FL (7.4-10.4); MONOCYTES # (AUTO) 0.8 X 10^3 (0.0-1.0); MONOCYTES % (AUTO) 15 % (0-12); NEUTROPHILS # (AUTO) 3.5 X 10^3 (1.8-7.8); NEUTROPHILS % (AUTO) 64 % (42-75); PLATELET COUNT 318 10^3/uL (130-400); RED CELL DISTRIBUTION WIDTH 21.4 % (10.0-14.5); RETICULOCYTE % 1.28 % (0.50-2.40); WHITE BLOOD COUNT 5.4 10^3/uL (4.3-11.0)
--- NOTE | 2018-10-01 06:30 | NUR ---
PEDROZA CATHETER IRRIGATED AT THIS TIME. FLUSHED WITH 60ML STERILE WATER, 60 ML RETURN WITH 2 SMALL CLOTS NOTED. WILL CONTINUE TO MONITOR
[2018-10-01 06:42] LABS: BAND NEUTROPHILS 2 %; LYMPHOCYTES % (MANUAL) 15 %; MONOCYTES % (MANUAL) 16 %; NEUTROPHILS % (MANUAL) 67 %
[2018-10-01 06:43] LABS: ACANTHOCYTES SLIGHT; ANISOCYTOSIS MARKED; HYPOCHROMASIA MODERATE; POIKILOCYTOSIS SLIGHT; POLYCHROMASIA SLIGHT
--- NOTE | 2018-10-01 09:25 | NUR ---
DR MCGEE NOTIFIED OF PT NOTED TO HAVE LABORED BREATHING THIS AM. OXYGEN 88% ON RA, 2LNC PLACED. 95% ON 2L. ORDER RECEIVED TO D/C FLUIDS AT THIS TIME.
--- NOTE | 2018-10-01 15:05 | Progress Note - Hospitalist ---
Subjective HPI/CC On Admission Date Seen by Provider: Oct 01, 2018 Time Seen by Provider: 09:30 Patient was pleasantly confused voices no complaints but was concerned that he had not seen his . Shortly after the interview his came in resulting in visible patient relief. He denied chest pain bladder pain chills fever or f lank pain. He had Corado catheter in place with gross hematuria noted. Subjective/Events-last exam Patient voices no complaints but remains pleasantly confused oriented 1 no abdo pao pain reported. No reported bladder spasms. Objective Exam Vital Signs Vital Signs Date Time Temp Pulse Resp B/P (MAP) Pulse Ox O2 Delivery O2 Flow Rate FiO2 10/01/18 13:00 73 10/01/18 11:28 98.8 20 122/58 (79) 97 Room Air Capillary Refill : Less Than 3 Seconds General Appearance: No Apparent Distress, Chronically ill Respiratory: No Accessory Muscle Use, No Respiratory Distress, Other (Few basilar rales noted otherwise clear) Cardiovascular: Regular Rate, Rhythm, Systolic Murmur (Holosystolic 2/6 heard best at the apex) Results/Procedures Lab Laboratory Tests 10/01/18 05:09 Patient resulted labs reviewed. Assessment/Plan Assessment and Plan Assess & Plan/Chief Complaint A/P 1. Anemia multifactorial aggravated by gross hematuria but highly likely to be the sole cause especially in light of the fact that patient's MCV is normal we'll obtain anemia analyzer and hold all anticoagulant therapy. Patient received 2 units of packed cells with hemoglobin up over 2 g to 9.3 this morning. 2. 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 Due to this patient's frailty discussed consult with Dr. Matamoros which they are agreeable to. 3. History of coronary artery disease with past bypass and pacemaker placement echocardiogram in August of this year revealed findings compatible with old inferolateral and apical [place] with moderate to severely impaired LV systolic function and estimated ejection fraction 25 percent. Suspect mild heart failure aggravated by blood transfusion and IV fluids will hold IV fluids as hematuria is improving and give 20 mg of Lasix IV 1. We'll check a baseline BNP.. 4. Dehydration poor by mouth resolved see number 3. Clinical Quality Measures DVT/VTE Risk/Contraindication: Risk Factor Score Per Nursin RFS Level Per Nursing on Admit: 3=High CLARISSA MCGEE MD Oct 01, 2018 15:05
[2018-10-01] MEDS ORDERED: FUROSEMIDE 40 MG/4 ML INJ (LASIX) IVP ONE (15:15)
[2018-10-01] MEDS ORDERED: LIDOCAINE UROJET 2% GEL 10 ML PKG ONE (16:24)
--- NOTE | 2018-10-01 21:35 | CONSULTATION REPORT ---
DATE OF SERVICE: 10/01/2018 ATTENDING PHYSICIAN: Dr. Mercedes, Dr. Landaverde. SUMMARY: After reviewing the patient's record, history and physical, ER visit, labs and CT and examining him, this is an 82-year-old white man who used to live in [place], moved again to [place]. 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 His medical doctor is Dr. Mercedes and he is supposed to see Dr. Thomas Chavez on Tuesday for kidney functions. He denies any voiding symptoms, although he is on finasteride 5 mg daily and tamsulosin 0.4 mg daily. He was also on aspirin 81 mg daily and Eliquis 2.5 mg b.i.d., both of which he took the day of his admission. He presented to the emergency room with few history of about 5-7 days of gross hematuria. A Corado catheter was inserted and irrigated free of clots. A CAT scan was obtained that revealed a 2.3 cm mass in the bladder on the lateral wall. His hemoglobin on admission was 6.5. Dr. Landaverde talked to me yesterday and I recommended blood transfusion which improved his hemoglobin today to 9. The patient feels better and stronger. His estimated glomerular filtration rate is 50, creatinine is 1.43. Electrolytes are decent. His urine is only positive for blood. PHYSICAL EXAMINATION: GENERAL: Well nourished, well developed in no acute distress. VITAL SIGNS: Per chart. ENT: Unremarkable. NECK: Supple. CHEST: Clear. HEART: Regular rate and rhythm. ABDOMEN: Soft. RECTAL: Deferred. EXTREMITIES: Lower extremity, no edema or cyanosis. NEUROLOGIC: Grossly intact. Oriented x3. IMPRESSION: 1. Gross hematuria. 2. Benign prostatic hypertrophy. 3. Possible bladder tumor. 4. Medical illness per history. 5. Anticoagulation for history of atrial fibrillation. PLAN: 1. Keep him off the aspirin and the Eliquis. 2. Check his CBC tomorrow. 3. Reschedule his appointment with Dr. Thomas Chavez on Tuesday. 4. Flexible cystoscopy at bedside under local. 5. Change the present Corado catheter to a 3-way. Start CBI with sterile water urine to allow me to see on cystoscopy. 6. Guaiac stools. 7. Social service consultation for eligibility to either inpatient rehabilitation or residential, since we will not be able to do any TURBT if we find a tumor in the bladder unless 7 days off the aspirin. The plan was fully explained to the patient and his . All their questions were answered. Job ID: [id number] DocumentID: [id number] Dictated Date: 10/01/2018 16:00:53 Engineer Exhauster Date: 10/01/2018 21:34:32 Dictated By: SARA GONZALEZ MD
[2018-10-02] VITALS (7 sets, daily range): BP systolic 105–156; BP diastolic 54–78
[2018-10-02] MEDS: LEVOTHYROXINE 112 MCG (LEVOTHROID) TAB PO SCH (06:09)
[2018-10-02 07:17] LABS: BASOPHILS % (AUTO) 0 % (0-10); EOSINOPHILS % (AUTO) 0 % (0-10); HEMATOCRIT 29 % (40-54); HEMOGLOBIN 9.1 G/DL (13.3-17.7); LYMPHOCYTES # (AUTO) 1.2 X 10^3 (1.0-4.0); LYMPHOCYTES % (AUTO) 23 % (12-44); MEAN CORPUSCULAR HEMOGLOBIN 30 PG (25-34); MEAN CORPUSCULAR HGB CONC 32 G/DL (32-36); MEAN CORPUSCULAR VOLUME 93 FL (80-99); MEAN PLATELET VOLUME 9.3 FL (7.4-10.4); MONOCYTES # (AUTO) 0.8 X 10^3 (0.0-1.0); MONOCYTES % (AUTO) 16 % (0-12); NEUTROPHILS # (AUTO) 3.2 X 10^3 (1.8-7.8); NEUTROPHILS % (AUTO) 62 % (42-75); PLATELET COUNT 261 10^3/uL (130-400); RED CELL DISTRIBUTION WIDTH 20.9 % (10.0-14.5); WHITE BLOOD COUNT 5.2 10^3/uL (4.3-11.0)
--- NOTE | 2018-10-02 07:37 | Progress Note ---
Subjective Date Seen by a Provider: Oct 02, 2018 Time Seen by a Provider: 07:25 Subjective/Events-last exam Patient sleeping comfortably this am. When awake he has no pain. He appears appropriate in speech this am. He has argueta with 3 way and irrigation today. Objective Exam Vital Signs Date Time Temp Pulse Resp B/P (MAP) Pulse Ox O2 Delivery O2 Flow Rate FiO2 10/02/18 04:50 99.2 73 20 136/78 (97) 98 Nasal Cannula 2.00 10/02/18 01:00 74 10/02/18 00:23 98.3 70 20 156/75 (102) 97 Nasal Cannula 2.00 10/01/18 20:30 Nasal Cannula 2.00 10/01/18 20:00 98.9 76 20 137/63 (87) 99 Nasal Cannula 2.00 10/01/18 20:00 Nasal Cannula 2.00 10/01/18 19:00 74 10/01/18 16:00 98.6 76 20 141/62 (88) 97 Nasal Cannula 2.00 10/01/18 13:00 73 10/01/18 11:28 98.8 77 20 122/58 (79) 97 Room Air 10/01/18 08:00 Room Air 10/01/18 07:56 98.4 75 20 141/73 (95) 91 Room Air I & O 10/02/18 07:00 Intake Total 3870 ml Output Total 6600 ml Balance -2730 ml Capillary Refill : Less Than 3 SecondsLess Than 3 Seconds General Appearance: No Apparent Distress Neck: Normal Inspection Respiratory: Lungs Clear Cardiovascular: Regular Rate, Rhythm Gastrointestinal: soft Results Lab Laboratory Tests 10/01/18 23:05: Stool Occult Blood Immunoassay NEGATIVE 10/02/18 07:05: White Blood Count 5.2, Red Blood Count 3.08L, Hemoglobin 9.1L, Hematocrit 29L, Mean Corpuscular Volume 93, Mean Corpuscular Hemoglobin 30, Mean Corpuscular Hemoglobin Concent 32, Red Cell Distribution Width 20.9H, Platelet Count 261, Mean Platelet Volume 9.3, Neutrophils (%) (Auto) 62, Lymphocytes (%) (Auto) 23, Monocytes (%) (Auto) 16H, Eosinophils (%) (Auto) 0, Basophils (%) (Auto) 0, Neutrophils # (Auto) 3.2, Lymphocytes # (Auto) 1.2, Monocytes # (Auto) 0.8, Eosinophils # (Auto) 0.0, Basophils # (Auto) 0.0 Microbiology 09/29/18 Urine Culture - Final, Complete NO GROWTH Assessment/Plan Assessment/Plan Assess & Plan/Chief Complaint 1. Gross hematuria. -Urology consulted 09/30 -possible cystoscopy today 2. Possible bladder tumor. -possible scope today for tissue sampling 3. Benign prostatic hypertrophy. -urology to begin flomax when ready 4. Anemia -stable at 9.1 (9.3 yesterday) -he has received 2 units of PRBCs 5. Dehydration-resolved -taking po now Clinical Quality Measures Admission Status Admission Dx 1. Anemia and this is acute blood loss -patient has received 1 unit of blood in the ER. -His hemoglobin will be rechecked every 6 hours 2. Hematuria gross -continue to monitor clinically -Patient has an appointment on October [address] Chavez urology in [facility] 3. 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 Renal insufficiency -iV fluids and monitor creatinine 5. Urinary tract infection -Initiation of IV antibiotic, ceftriaxone DVT/VTE Risk/Contraindication: Risk Factor Score Per Nursin RFS Level Per Nursing on Admit: 3=High SHON GONZALES MD Oct 02, 2018 07:37
[2018-10-02] MEDS ORDERED: LIDOCAINE UROJET 2% GEL 10 ML PKG ONE (08:11)
--- NOTE | 2018-10-02 09:02 | Physical Therapy Evaluation ---
PT Evaluation-General Medical Diagnosis Admission Date Sep 29, 2018 at 13:29 Medical Diagnosis: acute hemorrhagic anemia Onset Date: Sep 29, 2018 Therapy Diagnosis Therapy Diagnosis: generalized weakness/debility Height/Weight Height (Feet): 5 Height (Inches): 5.00 Weight (Pounds): 121 Weight (Ounces): 0.0 Precautions Precautions/Isolations: Fall Prevention, Standard Precautions, Pressure Ulcer Referral Physician: Shiloh Reason for Referral: Evaluation/Treatment Medical History Pertinent Medical History: CABG, HTN, [place], Renal Insufficiency Current History ER with blood in urine Reviewed History: Yes Social History Home: Single Level Current Living Status: Spouse Entry Into Home: Stairs With Railing PT Steps Into Home: 13 Prior/Core FIM Prior Level of Function Therapy Code Descriptions/Definitions Functional [place] Measure: 0=Not Assessed/NA 4=Minimal Assistance 1=Total Assistance 5=Supervision or Setup 2=Maximal Assistance 6=Modified [place] 3=Moderate Assistance 7=Complete [place] Therapy Quality Codes: 6 Independent with activity with or without an assistive device 5 Patient requires set up or clean up by helper. Patient completes activity by themselves 4 Supervision or touching assist (CGA). [place] provide cues , steadying assist 3 The helper provides less than half the effort to complete the activity 2 The helper provides more than half the effort to complete the activity 1 Dependent. The helper does all the effort to complete an activity 7 Patient refused to complete or attempt activity 9 The patient did not perform the activity before the current illness or injury 88 Not attempted due to Medical conditions or safety concerns Functional Abilities and Goals: Independent: Patient completed the activities by him/herself, with or without an assistive device, with no assistance from a helper. Needed Some Help: Patient needed partial assistance from another person to complete activities. Dependent: A helper completed the activities for the patient. Unknown: Not Applicable: Bed Mobility: 7 Transfers (B,C,W/C) (FIM): 7 Gait: 7 Stairs: 7 Indoor Mobility (Ambulation): Independent Stairs: Independent Prior Devices Use: None PT Evaluation-Current Subjective Patient agrees to PT. Pain Numeric Pain Scale: 0-No Pain Location: No Pain Reported Objective Patient Orientation: Person, Time, Situation Problem Solving: Fair Attachments: Corado Catheter ROM/Strength ROM Lower Extremities bilateral LE WFL Strength Lower Extremities 4-/5 grossly bilateral LE Integumentary/Posture Integumentary refer to nursing notes Bladder Incontinence: Corado Cath Posture kyphotic Neuromuscular (Tone, Coordination, Reflexes) grossly intact Sensory Vision: Functional Hearing: Functional Sensation Right Lower Extremit: Intact Sensation Left Lower Extremity: Intact Transfers Therapy Code Descriptions/Definitions Functional [place] Measure: 0=Not Assessed/NA 4=Minimal Assistance 1=Total Assistance 5=Supervision or Setup 2=Maximal Assistance 6=Modified [place] 3=Moderate Assistance 7=Complete [place] Transfers (B, C, W/C) (FIM): 6 Scootin Rollin Supine to/from Sit: 6 Sit to/from Stand: 6 Gait Mode of Locomotion: Walk Anticipated Mode of Locomotion: Walk Gait (FIM): 1 Distance (FIM): 1=up to 49 ft Distance: 15' Gait Level of Assist: 5 Gait Assistive Device: FWW Comments/Gait Description steady gait sequence Balance Sitting Static: Normal Sitting Dynamic: Normal Standing Static: Normal Standing Dynamic: Normal Assessment/Needs 82 y.o. male, will benefit from skilled PT to address functional strength and mobility to improve current LOF to safely return to home with spouse at maximum LOF. Rehab Potential: Fair PT Detention Goals Detention Goals PT Piano Accompanist Goals Time Frame: Oct 07, 2018 Transfers (B,C,W/C) (FIM): 7 Gait (FIM): 7 Gait distance (FIM): 3=150 ft Distance: >200' Gait Level of Assist: 7 Gait Assistive Device: None Stairs (FIM): 7 # of Steps: 13 Stairs Level Of Assist: 7 PT Plan Problem List Problem List: Activity Tolerance Treatment/Plan Treatment Plan: Continue Plan of Care Treatment Plan: Bed Mobility, Education, Functional Activity [place], Functional Strength, Gait, Safety, Therapeutic Exercise, Transfers Treatment Duration: Oct 07, 2018 Frequency: 6 times per week Estimated Hrs Per Day: .25 hour per day Patient and/or Family Agrees t: Yes Discharge Recommendations Therapy D/C Recommendations: Home w/ Family Support Time/GCodes Time In: 835 Time Out: 845 Total Billed Treatment Time: 10 Total Billed Treatment 1 visit EVLowC 10 min AISHWARYA VICENTE PT Oct 02, 2018 09:02
--- NOTE | 2018-10-02 09:27 | Progress Note-Post Operative ---
Post-Operative Progess Note Surgeon (s)/Computer Assistant (s) Surgeon SARA GONZALEZ MD Computer Assistant: NONE Pre-Operative Diagnosis GROSS HEMATURIA, POSSIBLE BLADDER TUMOR AND RETENTION Post-Operative Diagnosis SAME Procedure & Operative Findings Date of Procedure 10/02/18 Procedure Performed/Findings CYSTOSCOPY Anesthesia Type LOCAL Estimated Blood Loss Estimated blood loss (mL): NONE Specimens/Packing Specimens Removed NONE Packing: NONE SARA GONZALEZ MD Oct 02, 2018 09:27
--- NOTE | 2018-10-02 11:43 | Occupational Therapy Eval ---
OT Evaluation-General/PLF Medical Diagnosis Admission Date Sep 29, 2018 at 13:29 Medical Diagnosis: acute hemorrhagic anemia Onset Date: Sep 29, 2018 Therapy Diagnosis Therapy Diagnosis: impaired ADLs and mobility Height/Weight Height (Feet): 5 Height (Inches): 5.00 Weight (Pounds): 121 Weight (Ounces): 0.0 Precautions Precautions/Isolations: Fall Prevention, Standard Precautions Safety Interventions: Reorient-PRN Weight Bear Status Weight Bearing Restriction: Weight Bearing/Tolerated Referral Physician: Shiloh Referral Reason: Activity Tolerance, Self Care, Evaluation/Treatment, Strengthening/ROM Medical History Pertinent Medical History: CABG, HTN, [place], Renal Insufficiency Additional Medical History per h&P:"82-year-old male presents to [facility] emergency department during the morning of September 29, 2018 with gross blood during urination. Apparently this started about 5 days ago. He does have home health come to his house since he recently was dismissed from [facility] following cardiac surgery. He does not voice any pain on urination. There is no reports of any fever. Patient has been pretty weak that over the past few years his health has deteriorated." Social History Home: Single Level Current Living Status: Spouse Entry Into Home: Stairs With Railing Steps Into Home: 3 Steps Inside Home: 13 bed and bath is located on second floor of home. ADL-Prior Level of Function Therapy Code Descriptions/Definitions Functional [place] Measure: 0=Not Assessed/NA 4=Minimal Assistance 1=Total Assistance 5=Supervision or Setup 2=Maximal Assistance 6=Modified [place] 3=Moderate Assistance 7=Complete [place] Therapy Quality Codes: 6 Independent with activity with or without an assistive device 5 Patient requires set up or clean up by helper. Patient completes activity by themselves 4 Supervision or touching assist (CGA). [place] provide cues , steadying assist 3 The helper provides less than half the effort to complete the activity 2 The helper provides more than half the effort to complete the activity 1 Dependent. The helper does all the effort to complete an activity 7 Patient refused to complete or attempt activity 9 The patient did not perform the activity before the current illness or injury 88 Not attempted due to Medical conditions or safety concerns Functional Abilities and Goals: Independent: Patient completed the activities by him/herself, with or without an assistive device, with no assistance from a helper. Needed Some Help: Patient needed partial assistance from another person to complete activities. Dependent: A helper completed the activities for the patient. Unknown: Not Applicable: ADL PLOF Comments indep PLOF using no AD. pt reports he requires additional timing to complete ADLS but completes them indep'ly Self Care: Independent Functional Cognition: Independent Occupation: retired Drive Self: No OT Current Status Subjective pt laying supine in bed upon OT arrival. pt agreed to OT eval/ treatment session. pt spouse present in room. pt reports no pain. Pain Numeric Pain Scale: 0-No Pain Mental Status/Objective Patient Orientation: Normal For Age Attachments: Oxygen Current Glasses/Contacts: Yes Hearing Aids: Yes (pt is very [place] and did not bring hearing aids to hosp. ) Dentures/Partials: No Hand Dominance: Right Upper Extremity ROM WNL Upper Extremity Coordination WNL Upper Extremity Sensation WNL Upper Extremity Strength 4-/5 MMT ADL-Treatment Therapy Code Descriptions/Definitions Functional [place] Measure: 0=Not Assessed/NA 4=Minimal Assistance 1=Total Assistance 5=Supervision or Setup 2=Maximal Assistance 6=Modified [place] 3=Moderate Assistance 7=Complete [place] Therapy Quality Codes: 6 Independent with activity with or without an assistive device 5 Patient requires set up or clean up by helper. Patient completes activity by themselves 4 Supervision or touching assist (CGA). [place] provide cues , steadying assist 3 The helper provides less than half the effort to complete the activity 2 The helper provides more than half the effort to complete the activity 1 Dependent. The helper does all the effort to complete an activity 7 Patient refused to complete or attempt activity 9 The patient did not perform the activity before the current illness or injury 88 Not attempted due to Medical conditions or safety concerns Eating (FIM): 7 Grooming (FIM): 6 Bathing (FIM): 5 Lower Body Dressing (FIM): 5 (seated EOB. betsy socks. noted decrease activity tolernace an d increase timing to perform tasks. pt education on energy conservation .) Toileting (FIM): 5 (standing. ) Transfers (B, C, W/C) (FIM): 5 (use of RW. noted decrease safety awareness with RW ) noted decrease activity tolerance with ADL tasks requiring additional timing to compete tasks. post session, pt seated in recliner chair, call light within reach, all needs met. spouse present in room. Education OT Patient Education: Energy conservation, Progress toward Goal/Update tx plan, Purpose of tx/functional activities, Safety issues, Transfer techniques, Use of adapted equipment Teaching Recipient: Patient Teaching Methods: Demonstration, Discussion Response to Teaching: Verbalize Understanding, Return Demonstration OT Short Term Goals Short Term Goals 1=Demonstrate adherence to instructed precautions during ADL tasks. 2=Patient will verbalize/demonstrate understanding of assistive devices/modifications for ADL. 3=Patient will improve strength/tolerance for activity to enable patient to perform ADL's. OT Mcc Goals Mcc Goals Time Frame: Oct 16, 2018 Grooming(FIM): 6 Bathing(FIM): 6 Upper Body Dressing(FIM): 6 Lower Body Dressing(FIM): 6 Toileting(FIM): 6 Transfers (B,C,W/C) (FIM): 6 Toilet/Commode Transfer(FIM): 6 Additional Goals: 1-Demonstrate ADL Tasks, 2-Verbalize Understanding, 3- ImproveStrength/[place] 1=Demonstrate adherence to instructed precautions during ADL tasks. 2=Patient will verbalize/demonstrate understanding of assistive devices/modifications for ADL. 3=Patient will improve strength/tolerance for activity to enable patient to perform ADL's. OT Education/Plan Problem List/Assessment Assessment: Decreased Activ Tolerance, Decreased Safety Aware, Decreased UE Strength, Impaired Funct Balance Discharge Recommendations Plan/Recommendations: Continue POC Therapy D/C Recommendations: Home w/ Family Support Treatment Plan/Plan of Care Treatment,Training & Education: Yes Patient would benefit from OT for education, treatment and training to promote independence in ADL's, mobility, safety and/or upper extremity function for ADL's. Plan of Care: ADL Retraining, Functional Mobility, Group Exercise/Act as Ind, UE Funct Exercise/Act Frequency: 5 times per week Estimated Hrs Per Day: .25 hour per day Agreement: Yes Rehab Potential: Fair Time/GCodes Start Time: 11:15 Stop Time: 11:40 Billed Treatment Time EVM 15 minutes, ADL 1 units, 10 minutes. YSABEL MOLINA OT Oct 02, 2018 11:43
--- NOTE | 2018-10-02 12:00 | NUR ---
Pt is Yazidi. provided prayer amberly Communion and obtained consent for Auto Wheel Alignment Specialist notification.
--- NOTE | 2018-10-02 14:27 | OPERATIVE REPORT ---
DATE OF SERVICE: 10/02/2018 PREOPERATIVE DIAGNOSES: 1. Gross hematuria. 2. Possible bladder tumor. 3. Possible retention. POSTOPERATIVE DIAGNOSES: 1. Gross hematuria. 2. Possible bladder tumor. 3. Possible retention. OPERATION PERFORMED: Cystoscopy. SURGEON: Timothy Gonzalez MD. ANESTHESIA: Local. COMPLICATIONS: None. DESCRIPTION OF PROCEDURE: After removing the Corado catheter, with the patient in supine in his bed, genitalia were prepped and draped in the usual sterile fashion. Urethra was infiltrated with 2% lidocaine jelly. Penile clamp was applied. This was then removed and a flexible cystoscope was introduced under vision. The anterior urethra was normal. The prostate showed some enlargement with some obstruction. The bladder was entered, revealed a large bladder tumor on the left side with clot surrounding it. There was a kind of cloudy and hard to really evaluate the complete bladder, but did confirm the diagnosis of the bladder tumor. Cystoscopy confirmed in an antegrade fashion and the cystoscope was removed. The patient tolerated the procedure and anesthesia well and was sent to recovery room in stable condition. PLAN: We will put him on the schedule for TURBT next Tuesday. He will be thus off the aspirin for at least a week and he is already off the Eliquis and make sure that he clears up completely with his urine. We will have Dr. Chavez's input regarding his heart. We will discuss with Dr. Mercedes as well. Job ID: [id number] DocumentID: [id number] Dictated Date: 10/02/2018 09:29:50 Chief Underwriter Date: 10/02/2018 14:27:18 Dictated By: TIMOTHY GONZALEZ MD
--- NOTE | 2018-10-02 16:14 | Consultation-Cardiology ---
HPI-Cardiology Cardiology Consultation: Date of Consultation 10/02/18 Date of Admission Attending Physician Jonh Mercedes MD Admitting Physician Jonh Mercedes MD Consulting Physician Wild CHAVEZ MD HPI: Time Seen by a Provider: 16:00 Chief Complaint: Hematuria This is a 82-year-old gentleman who follows with me in the clinic for his cardiology care. He has history of CABG/CAD. History of paroxysmal atrial fibrillation, pacemaker. He is both on Eliquis and aspirin. He presented with persistent hematuria for 3-4 days before admission. He was found to be significantly anemic and required transfusion. Dr. Matamoros was consulted who performed cystoscopy which showed possible bladder tumor. No further biopsies were taken since the patient was on aspirin. Review of Systems-Cardiology Review of Systems Constitutional: As described under HPI; No As described under HPI, No no symptoms reported, No chills, No fever, No lightheadedness Eyes: No As described under HPI, No no symptoms reported, No blindness, No blurred vision, No contact lenses, No drainage, No decreased acuity, No foreign body sensation, No pain, No vision change Ears/Nose/Throat: No As described under HPI, No no symptoms reported, No chronic hearing loss, No ear discharge, No ear pain, No nasal drainage, No ulcerations Respiratory: No no symptoms reported; As described under HPI; No As described under HPI, No cough, No orthopnea, No shortness of breath, No SOB with excertion Cardiovascular: No no symptoms reported; As described under HPI; No As described under HPI, No chest pain, No edema, No irregular heart rate, No lightheadedness, No palpitations Gastrointestinal: No no symptoms reported, No As described under HPI, No abdomen distended, No abdominal pain, No blood streaked bowels, No constipation, No diarrhea, No nausea, No vomiting, No stool coloration changes Genitourinary: No As described under HPI, No burning, No dysuria, No discharge, No frequency, No flank pain; hematuria; No urgency Skin: No rash, No skin related problems, No ulcerations Psychiatric/Neurological: No anxiety, No depression, No seizure, No focal weakness, No syncope Hematologic: No bleeding abnormalities All Other Systems Reviewed Negative Unless Noted: Yes (Negative excepted noted.) ENW-Zipfkt-Lbscbu Hx Patient Social History Marrital Status: Alcohol Use: Denies Use Recreational Drug Use: No Smoking Status: Former Smoker Type Used: Cigarettes Recent Foreign Travel: No Recent Infectious Disease Expo: No Hospitalization with Isolation: Denies Immunizations Up To Date Date of Pneumonia Vaccine: Aug 18, 2012 Past Medical History PMH As described under Assessment. Allergies and Home Medications Allergies Coded Allergies: niacin (Verified Allergy, Mild, RASH, 08/19/15) Home Medications Apixaban 2.5 Mg Tablet, 2.5 MG PO BID, (Reported) Aspirin 81 Mg Tablet.dr, 81 MG PO DAILY, (Reported) Atorvastatin Calcium 40 Mg Tablet, 40 MG PO HS, (Reported) LAST FILLED #90 01-05-18 Azelastine HCl 137 Mcg/0.137 Ml [place].pump, 2 SPRAYS NS BID, (Reported) Finasteride 5 Mg Tablet, 5 MG PO DAILY, (Reported) Furosemide 20 Mg Tablet, 10 MG PO DAILY, (Reported) TAKES 1/2 (20MG) TABLET Ipratropium [place] 15 Ml Naspr, 2 SPRAYS NS QID, (Reported) Levothyroxine Sodium 112 Mcg Tablet, 112 MCG PO DAILY, (Reported) Mexiletine HCl 150 Mg Cap, 150 MG PO BID, (Reported) Tamsulosin HCl 0.4 Mg Cap, 0.4 MG PO HS, (Reported) Patient Home Medication List Home Medication List Reviewed: Yes Physical Exam-Cardiology Physical Exam Vital Signs/I&O 10/02/18 10/02/18 10/02/18 10/02/18 12:00 13:01 15:50 16:31 Temp 97.2 99.1 Pulse 76 77 75 Resp 18 20 B/P (MAP) 105/54 (71) 122/63 (82) Pulse Ox 95 98 O2 Delivery Nasal Cannula Nasal Cannula Nasal Cannula O2 Flow Rate 2.00 2.00 2.00 10/02/18 10/02/18 19:39 19:39 Temp 99.3 Pulse 72 79 Resp 22 B/P (MAP) 134/69 (90) Pulse Ox 98 O2 Delivery Nasal Cannula O2 Flow Rate 2.00 10/02/18 00:00 Intake Total 770 ml Output Total 3400 ml Balance -2630 ml Capillary Refill : Less Than 3 SecondsLess Than 3 Seconds Constitutional: appears stated age, AAO x 3; No apparent distress; well- developed, well-nourished HEENT: PERRL; No normal ENT inspection, No TMs normal, No pharynx normal, No scleral icterus (R), No scleral icterus (L), No pale conjunctivae (R), No pale conjunctivae (L), No photophobia, No TM abnormal (R), No TM abnormal (L), No pharyngeal erythema, No tonsillar exudate, No other, No discharge, No EOMI; h earing is well preserved; No hard of hearing; oral hygience is good; No ulceration, No xanthelasmas are seen Neck: No non-tender, No full range of motion, No supple, No normal inspection, No carotid bruit, No limited range of motion, No lymphadenopathy (R), No lymphadenopathy (L), No tender lateral, No tender midline, No thyromegaly, No other; carotid pulses are 2 + bilaterally; No with good upstrokes Respiratory: No accessory muscle use, No respiratory distress, No chest tender, No chest expansion is symmetric; chest is bilaterally symmetric; No lungs clear to percussion; lungs clear to auscultation; No crackles, No rhonchi, No rales, No stridor, No wheezing, No pleural rub, No other Cardiovascular: regular rate-rhythm, S1 and S2 Gastrointestinal: No tender, No soft, No round, No distended, No pulsatile mass, No organomegaly, No guarding, No rebound, No tenderness, No hernia, No mass, No audible bowel sounds, No abnormal bowel sounds, No abdominal bruits, No spleenomegaly, No other Rectal: deferred Extremities: No normal range of motion, No non-tender, No normal inspection, No pedal edema, No calf tenderness, No normal capillary refill, No pelvis stable, No calf tenderness, No inflammation, No pedal edema, No slow capillary refill, No swelling, No other, No abrasion, No clubbing, No cyanosis, No ecchymosis, No laceration, No no lower extremity edema bilateral, No significant edema, No tenderness, No wound Neurologic/Psychiatric: no motor/sensory deficits, alert, normal mood/affect, oriented x 3, power is 5/5 both on sides Skin: No rash, No ulcerations Data Review Labs Laboratory Tests 10/01/18 23:05: Stool Occult Blood Immunoassay NEGATIVE 10/02/18 07:05: White Blood Count 5.2, Red Blood Count 3.08L, Hemoglobin 9.1L, Hematocrit 29L, Mean Corpuscular Volume 93, Mean Corpuscular Hemoglobin 30, Mean Corpuscular Hemoglobin Concent 32, Red Cell Distribution Width 20.9H, Platelet Count 261, Mean Platelet Volume 9.3, Neutrophils (%) (Auto) 62, Lymphocytes (%) (Auto) 23, Monocytes (%) (Auto) 16H, Eosinophils (%) (Auto) 0, Basophils (%) (Auto) 0, Neutrophils # (Auto) 3.2, Lymphocytes # (Auto) 1.2, Monocytes # (Auto) 0.8, Eosinophils # (Auto) 0.0, Basophils # (Auto) 0.0 10/02/18 11:33: Lab Scanned Report Transfusion Reaction Form Microbiology 09/29/18 Urine Culture - Final, Complete NO GROWTH A/P-Cardiology Assessment/Admission Diagnosis Gross hematuria, Possible bladder tumor, Paroxysmal atrial fibrillation, CABG/CAD, Ischemic cardiomyopathy, Moderate mitral regurgitation, Moderate to severe tricuspid regurgitation, Pulmonary hypertension, Moderate diastolic dysfunction. Plan Gross hematuria, defer to Dr Matamoros. Continue to hold Aspirin and Eliquis. Possible bladder tumor, requires biopsy, which will be done next tuesday. Paroxysmal atrial fibrillation, hold eliquis till urological procedure. Discussed and explained to the patient. CABG/CAD, Continue atorvastatin. Ischemic cardiomyopathy, ICD in place. Moderate mitral regurgitation, No active issues. Moderate to severe tricuspid regurgitation, Pulmonary hypertension, Moderate diastolic dysfunction. Echocardiogram done on 08/28/2018 shows LVEF of 20-25 percent with regional wall motion abnormalities. Dilated left atrium. Moderate mitral regurgitation, moderate to severe tricuspid regurgitation, only hypertension, moderate diastolic dysfunction. Thank you for your consultation. Please call me if you have any questions. Yuly Chavez MD, FACP, FACC, FSCAI, FHRS, CCDS Interventional Cardiology Cardiac Electrophysiology Vascular Medicine and Endovascular Interventions Clinical Quality Measures DVT/VTE Risk/Contraindication: Risk Factor Score Per Nursin RFS Level Per Nursing on Admit: 3=High Wild CHAVEZ MD Oct 02, 2018 16:14
--- NOTE | 2018-10-02 16:15 | NUR ---
Report received from NIKHIL Klein. Agree with previous assessment. This RN to assume care.
[2018-10-03 04:08] VITALS: BP 143/63
[2018-10-03] MEDS: LEVOTHYROXINE 112 MCG (LEVOTHROID) TAB PO SCH (05:32)
[2018-10-03 08:00] VITALS: BP 126/58
--- NOTE | 2018-10-03 09:06 | Cardiology Progress Note ---
Cardiology SOAP Progress Note Subjective: Still continues to have hematuria. Objective: I&O/Vital Signs 10/03/18 10/03/18 10/03/18 10/03/18 07:00 08:00 08:00 12:00 Temp 97.1 97.5 Pulse 75 72 76 Resp 20 20 B/P (MAP) 126/58 (80) 131/64 (86) Pulse Ox 92 93 O2 Delivery Nasal Cannula Room Air Room Air O2 Flow Rate 2.00 10/03/18 10/03/18 13:00 16:39 Temp 99.7 Pulse 72 75 Resp 20 B/P (MAP) 132/63 (86) Pulse Ox 95 O2 Delivery Room Air 10/03/18 00:00 Intake Total 2040 ml Output Total 7475 ml Balance -5435 ml Weight (Pounds): 121 Weight (Ounces): 0.0 Weight (Calculated Kilograms): [id number] Constitutional: appears stated age, AAO x 3; No apparent distress; well- developed, well-nourished Respiratory: No accessory muscle use, No respiratory distress, No chest tender, No chest expansion is symmetric; chest is bilaterally symmetric; No lungs clear to percussion; lungs clear to auscultation; No crackles, No rhonchi, No rales, No stridor, No wheezing, No pleural rub, No other Cardiovascular: regular rate-rhythm, S1 and S2 Gastrointestional: No tender, No soft, No round, No distended, No pulsatile mass, No organomegaly, No guarding, No rebound, No tenderness, No hernia, No mass, No audible bowel sounds, No abnormal bowel sounds, No abdominal bruits, No spleenomegaly, No other Extremities: No normal range of motion, No non-tender, No normal inspection, No pedal edema, No calf tenderness, No normal capillary refill, No pelvis stable, No calf tenderness, No inflammation, No pedal edema, No slow capillary refill, No swelling, No other, No abrasion, No clubbing, No cyanosis, No ecchymosis, No laceration, No no lower extremity edema bilateral, No significant edema, No tenderness, No wound Neurologic/Psychiatric: no motor/sensory deficits, alert, normal mood/affect, oriented x 3, power is 5/5 both on sides Skin: No rash, No ulcerations Results/Procedures: Labs Microbiology 09/29/18 Urine Culture - Final, Complete NO GROWTH A/P: Assessment/Dx: Gross hematuria, Possible bladder tumor, Paroxysmal atrial fibrillation, CABG/CAD, Ischemic cardiomyopathy, Moderate mitral regurgitation, Moderate to severe tricuspid regurgitation, Pulmonary hypertension, Moderate diastolic dysfunction. Plan: Gross hematuria, defer to Dr Matamoros. Continue to hold Aspirin and Eliquis. Possible bladder tumor, requires biopsy, which will be done next tuesday. Paroxysmal atrial fibrillation, hold eliquis till urological procedure. Discussed and explained to the patient. CABG/CAD, Continue atorvastatin. Ischemic cardiomyopathy, ICD in place. Moderate mitral regurgitation, No active issues. Moderate to severe tricuspid regurgitation, Pulmonary hypertension, Moderate diastolic dysfunction. Echocardiogram done on 08/28/2018 shows LVEF of 20-25 percent with regional wall motion abnormalities. Dilated left atrium. Moderate mitral regurgitation, mod erate to severe tricuspid regurgitation, only hypertension, moderate diastolic dysfunction. Thank you for your consultation. Please call me if you have any questions. Yuly Chavez MD, FACP, FACC, FSCAI, FHRS, CCDS Interventional Cardiology Cardiac Electrophysiology Vascular Medicine and Endovascular Interventions Wild CHAVEZ MD Oct 03, 2018 09:06
--- NOTE | 2018-10-03 09:26 | Physical Therapy Daily Note ---
PT Daily Note-Current Subjective Patient agrees to PT. No c/o. Mental Status Patient Orientation: Normal For Age Attachments: Oxygen Transfers Therapy Code Descriptions/Definitions Functional [place] Measure: 0=Not Assessed/NA 4=Minimal Assistance 1=Total Assistance 5=Supervision or Setup 2=Maximal Assistance 6=Modified [place] 3=Moderate Assistance 7=Complete [place] Therapy Quality Codes: 6 Independent with activity with or without an assistive device 5 Patient requires set up or clean up by helper. Patient completes activity by themselves 4 Supervision or touching assist (CGA). [place] provide cues , steadying assist 3 The helper provides less than half the effort to complete the activity 2 The helper provides more than half the effort to complete the activity 1 Dependent. The helper does all the effort to complete an activity 7 Patient refused to complete or attempt activity 9 The patient did not perform the activity before the current illness or injury 88 Not attempted due to Medical conditions or safety concerns Transfers (B, C, W/C) (FIM): 5 Scootin Sit to/from Stand: 5 Gait Training Gait (FIM): 5 Distance (FIM): 3=150 ft Distance: 225' Gait Level of Assist: 5 Gait Persons Needed: 1 Gait Assistive Device: FWW slow, functional gait sequence Assessment Patient tolerated treatment well and remains up in recliner with needs met. PT Ceiling Insulation Blower Goals Skilled Nursing Goals PT Ceiling Insulation Blower Goals Time Frame: Oct 07, 2018 Transfers (B,C,W/C) (FIM): 7 Gait (FIM): 7 Gait distance (FIM): 3=150 ft Distance: >200' Gait Level of Assist: 7 Gait Assistive Device: None Stairs (FIM): 7 # of Steps: 13 Stairs Level Of Assist: 7 PT Plan Treatment/Plan Treatment Plan: Continue Plan of Care Treatment Plan: Bed Mobility, Education, Functional Activity [place], Functional Strength, Gait, Safety, Therapeutic Exercise, Transfers Treatment Duration: Oct 07, 2018 Frequency: 6 times per week Estimated Hrs Per Day: .25 hour per day Patient and/or Family Agrees t: Yes Time/GCodes Time In: 900 Time Out: 910 Total Billed Treatment Time: 10 Total Billed Treatment 1 visit GT 10 min AISHWARYA VICENTE PT Oct 03, 2018 09:26
--- NOTE | 2018-10-03 09:53 | Progress Note - Urology ---
Progress Note-Urology Progress Notes/Assess & Plan Progress/Assessment & Plan FEELING BETTER AND STRONGER. VOIDING ON OWN DARK URINE. NO ACTIVE BLEEDING. PLAN TURBT NEXT TUESDAY. OK WITH BILLY ALEXANDER AND CHRISTIAN. 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
--- NOTE | 2018-10-03 10:27 | NUR ---
Visited with patient about any needs or concerns that he might have for discharge planning. Reviewed his chart et it does not appear that he has any skilled needs at this time. Dom voiced that he thinks that he could go home from here but we did visit about the possibility of need for home health care for nursing. Dom voiced that he has recently received home health care et thought that the nurse setting up his medications was helpful. It appears that he will need to hold his ASA et Eliquis until he has a biopsy next Tuesday. The nurse would be able to help with this et also monitor his urine if this is indicated. He had oxygen on at 1.5 LPM via [place] when I was visiting with him. F/U with his primary care nurse et she found that his oxygen saturations have been greater than 90% et is going to trial him off of his oxygen per the doctors order. Dom called me back to his room et wanted to talk about his Jl. He has concerns that she needs home health care also d/t his reports of neuropathy et constant pain limiting her ambulation. I encouraged him to f/u with Dr. Mercedes about his voiced concerns. Reported our visit to [facility] for continued f/u if indicated.
--- NOTE | 2018-10-03 11:39 | Occupational Ther Daily Note ---
OT Current Status-Daily Note Subjective Pt sitting in chair, agrees to therapy. No c/o pain. Mental Status/Objective Therapy Code Descriptions/Definitions Functional [place] Measure: 0=Not Assessed/NA 4=Minimal Assistance 1=Total Assistance 5=Supervision or Setup 2=Maximal Assistance 6=Modified [place] 3=Moderate Assistance 7=Complete [place] ADL-Treatment Pt reports completing shower with assist from nursing this morning. Demonstrated ability to doff/don socks with SBA while seated in chair. Pt requests to use restroom. Sit to stand with modified independence. Gait to restroom with FWW, SBA and cues for balance and safety. Pt stood to use urinal with set up. Declined to complete other ADL tasks at this time. Pt returned to chair, sitting with needs met after session. Lower Body Dressing (FIM): 5 (socks only) Toileting (FIM): 5 OT Short Term Goals Short Term Goals 1=Demonstrate adherence to instructed precautions during ADL tasks. 2=Patient will verbalize/demonstrate understanding of assistive devices/modifications for ADL. 3=Patient will improve strength/tolerance for activity to enable patient to perform ADL's. OT [employer] Goals Halfway Goals Time Frame: Oct 16, 2018 Grooming(FIM): 6 Bathing(FIM): 6 Upper Body Dressing(FIM): 6 Lower Body Dressing(FIM): 6 Toileting(FIM): 6 Transfers (B,C,W/C) (FIM): 6 Toilet/Commode Transfer(FIM): 6 Additional Goals: 1-Demonstrate ADL Tasks, 2-Verbalize Understanding, 3- ImproveStrength/[place] 1=Demonstrate adherence to instructed precautions during ADL tasks. 2=Patient will verbalize/demonstrate understanding of assistive juliano orly/modifications for ADL. 3=Patient will improve strength/tolerance for activity to enable patient to perform ADL's. OT Education/Plan Discharge Recommendations Plan/Recommendations: Continue POC Treatment Plan/Plan of Care Patient would benefit from OT for education, treatment and training to promote independence in ADL's, mobility, safety and/or upper extremity function for ADL's. Plan of Care: ADL Retraining, Functional Mobility, Group Exercise/Act as Ind, UE Funct Exercise/Act Frequency: 5 times per week Estimated Hrs Per Day: .25 hour per day Agreement: Yes Rehab Potential: Fair Time/GCodes Start Time: 10:42 Stop Time: 11:00 Total Time Billed (hr/min): 18 Billed Treatment Time 1 visit, ADL(18minutes) PRATEEK KINCAID OT Oct 03, 2018 11:39
[2018-10-03 12:00] VITALS: BP 131/64
--- NOTE | 2018-10-03 13:54 | NUR ---
CM/SS, respond to consult for post hospital care. PLAN: Home tomorrow with resume of [facility] with [facility] agency for RN monitor of hematuria and Rx management. Return next 10/10/18, for scheduled TURBT by Dr. Matamoros. At discharge, an appointment needs to be scheduled with Dr. Matamoros in his office for Tuesday a.m. for pre op information. SUMMARY: Visited with patient, then later with family present: Spouse Iona, twin daughters and son in law. Explored home with spouse vs short term community correction placement. Patient and spouse agreed he was able to return home for the interim before outpatient procedure. Psychiatric Nursing Assistant communicated with both Drs. Matamoros and Mago regarding discharge plan and next steps. Plan was developed as noted above, Dr. Mercedes will repeat labs, review, then discharge if all appears stable. 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 [facility] should be notified to confirm discharge.
--- NOTE | 2018-10-03 14:03 | Progress Note ---
Subjective Date Seen by a Provider: Oct 03, 2018 Time Seen by a Provider: 07:30 Subjective/Events-last exam Patient has [place] catheter out at this time. He does not admit to any significant pain. His urine is still very bloody Objective Exam Vital Signs Date Time Temp Pulse Resp B/P (MAP) Pulse Ox O2 Delivery O2 Flow Rate FiO2 10/03/18 08:00 97.1 72 20 126/58 (80) 92 Room Air 10/03/18 08:00 Nasal Cannula 2.00 10/03/18 07:00 75 10/03/18 04:08 97.4 75 20 143/63 (89) 99 Nasal Cannula 2.00 10/03/18 01:01 74 10/02/18 23:19 98.8 82 20 119/57 (77) 97 Nasal Cannula 2.00 10/02/18 20:00 Nasal Cannula 2.00 10/02/18 19:39 79 10/02/18 19:39 99.3 72 22 134/69 (90) 98 Nasal Cannula 2.00 10/02/18 16:31 99.1 75 20 122/63 (82) 98 Nasal Cannula 2.00 10/02/18 15:50 Nasal Cannula 2.00 I & O 10/03/18 07:00 Intake Total 2140 ml Output Total 7800 ml Balance -5660 ml Capillary Refill : Less Than 3 SecondsLess Than 3 Seconds General Appearance: No Apparent Distress Respiratory: Lungs Clear Cardiovascular: Regular Rate, Rhythm Gastrointestinal: soft Results Lab Microbiology 09/29/18 Urine Culture - Final, Complete NO GROWTH Assessment/Plan Assessment/Plan Assess & Plan/Chief Complaint 1. Gross hematuria. -Urology consulted 09/30 -possible cystoscopy today 10/03 -Cystoscopy yesterday 2. Possible bladder tumor. -possible scope today for tissue sampling 10/03 -awaiting biopsy report 3. Benign prostatic hypertrophy. -urology to begin flomax when ready 4. Anemia -stable at 9.1 (9.3 yesterday) -he has received 2 units of PRBCs 10/03 -recheck H/H in the am of 10/04 -plan on dc to home in am if hg stable 5. Dehydration-resolved -taking po now Clinical Quality Measures Admission Status Admission Dx 1. Anemia and this is acute blood loss -patient has received 1 unit of blood in the ER. -His hemoglobin will be rechecked every 6 hours 2. Hematuria gross -continue to monitor clinically -Patient has an appointment on October [address] Chavez urology in [facility] 3. 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 Renal insufficiency -iV fluids and monitor creatinine 5. Urinary tract infection -Initiation of IV antibiotic, ceftriaxone DVT/VTE Risk/Contraindication: Risk Factor Score Per Nursin RFS Level Per Nursing on Admit: 3=High SHON GONZALES MD Oct 03, 2018 14:03
[2018-10-03 16:39] VITALS: BP 132/63
[2018-10-03 19:57] VITALS: BP 126/65
[2018-10-04 00:10] VITALS: BP 139/64
[2018-10-04 04:05] VITALS: BP 151/71
[2018-10-04 05:56] LABS: HEMOGLOBIN 9.2 G/DL (13.3-17.7)
[2018-10-04] MEDS: LEVOTHYROXINE 112 MCG (LEVOTHROID) TAB PO SCH (06:21)
--- NOTE | 2018-10-04 07:53 | Discharge Inst-Simple/Standard ---
Discharge Inst-Standard Reconcile Patient Problems Problems Reviewed?: Yes Discharge Medications New, Converted or Re-Newed RX: Other (no new prescriptions) Patient Instructions/Follow Up Plan of Care/Instructions/FU: Dr Matamoros on September for pre-op instructions and fu. Call today to make appt for tomorrow. Activity as Tolerated: Yes Discharge Diet: Regular Diet Return to The Hospital For: Fever, unable to urinate SHON GONZALES MD Oct 04, 2018 07:53
[2018-10-04 08:00] VITALS: BP 164/72
--- NOTE | 2018-10-04 08:02 | Discharge Summary ---
Diagnosis/Chief Complaint Date of Admission Sep 29, 2018 at 13:29 Date of Discharge October 04, 2018 Discharge Date: Oct 04, 2018 Discharge Time: 08:00 Admission Diagnosis Admission Diagnosis 1. Hematuria 2. Bladder wall mass 3. Dehydration Discharge Diagnosis 1. Hematuria 2. Bladder wall mass 3. Dehydration Reason Hospital Visit 82-year-old male presents to [facility] emergency department during the morning of September 29, 2018 with gross blood during urination. Apparently this started about 5 days ago. He does have home health come to his house since he recently was dismissed from [facility] following cardiac surgery. He does not voice any pain on urination. There is no reports of any fever. Patient has been pretty weak that over the past few years his health has deteriorated. Discharge Summary Hospital Course Was the Problem List Reviewed?: Yes Hospital Course patient was admitted on September 29, 2018 with obvious gross blood in his urine. At that time he was dehydrated as well. He was noted to be anemic. His anemia was felt to be secondary to his bleeding from urinary tract. He was given 2 units of packed red blood cells. Initially family had on with nephrology on October 03in [facility]. Urology was consulted on October 01. Ultimately patient had Corado catheter placed on a three-way system for flushing. He was also seen by cardiology to ensure cardiac status procedures He was in need of a biopsy mass that was found in bladder in emergency department on admission. Dr. Chavez cardiology was consulted as well. Patient underwent bedside scope on October 02, 2018 with findings consistent with tumor. Patient's hemoglobin remained stable. Since he had been on blood thinners aspirin and Eliquis, he will not be able to undergo definitive surgery for one week. Patient was dismissed n the morning of October 04. He ill follow-up with Dr. Matamoros in the morning of September for preop instructions Labs Laboratory Tests 10/01/18 23:05: 10/02/18 07:05: Red Blood Count 3.08L, Hemoglobin 9.1L, Hematocrit 29L, Red Cell Distribution Width 20.9H, Monocytes (%) (Auto) 16H 10/02/18 11:33: 10/04/18 05:20: Hemoglobin 9.2L, Hematocrit 30L Procedures None. Consultations Urology-Dr Matamoros Cardiology-Dr Khalid Discharge Physical Examination Allergies: Coded Allergies: niacin (Verified Allergy, Mild, RASH, 08/19/15) Vitals & I&Os Vital Signs Date Time Temp Pulse Resp B/P (MAP) Pulse Ox O2 Delivery O2 Flow Rate FiO2 10/04/18 04:05 98.2 78 22 151/71 (97) 95 Room Air 10/03/18 20:00 2.00 General Appearance: No Acute Distress Respiratory: Clear to Auscultation Cardiovascular: Regular Rate Abdominal: Soft Skin: No Rashes Neuro: Normal Speech Discharge Home Medications Reviewed and agree with Discharge Medication list on patient's Discharge Instr uction sheet Instructions to Patient/Family Please see electronic discharge instructions given to patient. Clinical Quality Measures DVT/VTE Risk/Contraindication: Risk Factor Score Per Nursin RFS Level Per Nursing on Admit: 3=High SHON GONZALES MD Oct 04, 2018 08:02
--- NOTE | 2018-10-04 09:39 | NUR ---
CM/SS. Patient discharged home today as planned, he has contacted his spouse for transport. HHC: Resumed with established agency, [facility]. Agency staff will call Dr. Mercedes for specific resume orders. Unit RN aware of all arrangements, patient is dressed and ready to leave.
--- NOTE | 2018-10-04 11:10 | NUR ---
RENY ESTRADA demonstrates understanding of discharge instructions and accurately returns instructions upon questioning. Copy of Post-Discharge Instructions given to PT. RENY ESTRADA is able to manage continuing needs after discharge. Patients belongings returned to PT. Patient discharged from 416-1 on 10/04/18 at 1110. RENY ESTRADA left floor via W/C, accompanied by STAFF AND PER AUTO.
[2018-10-04 11:15] VITALS: BP 138/78
--- NOTE | 2018-10-04 13:14 | Cardiology Progress Note ---
Cardiology SOAP Progress Note Subjective: Continues to have hematuria. Objective: I&O/Vital Signs 10/04/18 10/04/18 10/04/18 10/04/18 04:05 07:00 08:00 08:00 Temp 98.2 98.0 Pulse 78 75 83 Resp 22 18 B/P (MAP) 151/71 (97) 164/72 (102) Pulse Ox 95 94 O2 Delivery Room Air Room Air Room Air 10/04/18 00:00 Intake Total 1020 ml Output Total 750 ml Balance 270 ml Weight (Pounds): 121 Weight (Ounces): 0.0 Weight (Calculated Kilograms): 54.295648 Constitutional: appears stated age, AAO x 3; No apparent distress; well- developed, well-nourished Respiratory: No accessory muscle use, No respiratory distress, No chest tender, No chest expansion is symmetric; chest is bilaterally symmetric; No lungs clear to percussion; lungs clear to auscultation; No crackles, No rhonchi, No rales, No stridor, No wheezing, No pleural rub, No other Cardiovascular: regular rate-rhythm, S1 and S2 Gastrointestional: No tender, No soft, No round, No distended, No pulsatile mass, No organomegaly, No guarding, No rebound, No tenderness, No hernia, No mass, No audible bowel sounds, No abnormal bowel sounds, No abdominal bruits, No spleenomegaly, No other Extremities: No normal range of motion, No non-tender, No normal inspection, No pedal edema, No calf tenderness, No normal capillary refill, No pelvis stable, No calf tenderness, No inflammation, No pedal edema, No slow capillary refill, No swelling, No other, No abrasion, No clubbing, No cyanosis, No ecchymosis, No laceration, No no lower extremity edema bilateral, No significant edema, No tenderness, No wound Neurologic/Psychiatric: no motor/sensory deficits, alert, normal mood/affect, oriented x 3, power is 5/5 both on sides Skin: No rash, No ulcerations Results/Procedures: Labs Laboratory Tests 10/04/18 05:20: Hemoglobin 9.2L, Hematocrit 30L Microbiology 09/29/18 Urine Culture - Final, Complete NO GROWTH A/P: Assessment/Dx: Gross hematuria, Possible bladder tumor, Paroxysmal atrial fibrillation, CABG/CAD, Ischemic cardiomyopathy, Moderate mitral regurgitation, Moderate to severe tricuspid regurgitation, Pulmonary hypertension, Moderate diastolic dysfunction. Plan: Gross hematuria, defer to Dr Matamoros. Continue to hold Aspirin and Eliquis. Possible bladder tumor, requires biopsy, which will be done next tuesday. Paroxysmal atrial fibrillation, hold eliquis till urological procedure. Discussed and explained to the patient. CABG/CAD, Continue atorvastatin. Ischemic cardiomyopathy, ICD in place. Moderate mitral regurgitation, No active issues. Moderate to severe tricuspid regurgitation, Pulmonary hypertension, Moderate diastolic dysfunction. Echocardiogram done on 08/28/2018 shows LVEF of 20-25 percent with regional wall motion abnormalities. Dilated left atrium. Moderate mitral regurgitation, moderate to severe tricuspid regurgitation, only hypertension, moderate diastolic dysfunction. Thank you for your consultation. Please call me if you have any questions. Yuly Chavez MD, FACP, FACC, FSCAI, FHRS, CCDS Interventional Cardiology Cardiac Electrophysiology Vascular Medicine and Endovascular Interventions Wild CHAVEZ MD Oct 04, 2018 13:14
== END 2018-10-04 11:10 | disposition home health service (06) | DRG 687 ==
LOC: ER 10:29 → EDUNIT# 10:29 → 4TH 13:29
PROVIDERS: ADMIT Family Medicine; ATTEND Family Medicine
PROC: 0TJB8ZZ Inspection of Bladder, Via Natural or Artificial Opening Endoscopic (ICD-10-PCS; principal; 2018-10-02 08:46)
DX: D41.4 Neoplasm of uncertain behavior of bladder (principal); D62 Acute posthemorrhagic anemia; N30.01 Acute cystitis with hematuria; R31.0 Gross hematuria; N40.1 Benign prostatic hyperplasia with lower urinary tract symptoms; R33.9 Retention of urine, unspecified; I11.0 Hypertensive heart disease with heart failure; I50.9 Heart failure, unspecified; N28.9 Disorder of kidney and ureter, unspecified; I25.10 Atherosclerotic heart disease of native coronary artery without angina pectoris; E86.0 Dehydration; I48.0 Paroxysmal atrial fibrillation; I25.5 Ischemic cardiomyopathy; I27.20 Pulmonary hypertension, unspecified; I08.1 Rheumatic disorders of both mitral and tricuspid valves; I25.2 Old myocardial infarction; Z95.0 Presence of cardiac pacemaker; Z95.1 Presence of aortocoronary bypass graft; Z87.891 Personal history of nicotine dependence; Z79.01 Long term (current) use of anticoagulants; Z79.82 Long term (current) use of aspirin
CPT/HCPCS: 36415; 74176; 80053; 81000; 82274; 82607; 82746; 83540; 83550; 83880; 84443; 85007; 85014; 85018; 85025; 85027; 85045; 85055; 86850; 86900; 86901; 86920; 87088; 96360

== ENCOUNTER 2018-10-06 05:31 | Outpatient (CLI) | payer MEDICARE ==
[~2018-10-06] VITALS: Ht 165.1 cm; Wt 58.1 kg
[~2018-10-06 05:31] MED LIST changes: +APIX2.5T PO; +AZEL137S11 NS; +FURO20TA4 PO; +LEVO112T55 PO; +NF-MEXI150 PO; +NFIPRATRNS NS; +TORS20TA3 PO
[2018-10-06 10:07] VITALS: BP 124/68
[2018-10-06 10:54] LABS: BILIRUBIN,URINE NEGATIVE (NEGATIVE); CLARITY,URINE CLEAR; COLOR,URINE YELLOW; GLUCOSE, URINE (UA) NEGATIVE (NEGATIVE); KETONES,URINE NEGATIVE (NEGATIVE); LEUKOCYTE ESTERASE ,URINE 1+ (NEGATIVE); NITRITE,URINE NEGATIVE (NEGATIVE); PH,URINE 5 (5-9); PROTEIN,URINE NEGATIVE (NEGATIVE); UROBILINOGEN,URINE NORMAL (NORMAL)
[2018-10-06 11:32] LABS: BACTERIA,URINE FEW /HPF
== END 2018-10-06 10:35 | disposition home or self-care (01) ==
LOC: PREOP 05:31
PROVIDERS: ATTEND Urology
DX: Z01.812 Encounter for preprocedural laboratory examination (principal); D49.4 Neoplasm of unspecified behavior of bladder
CPT/HCPCS: 81000; 87077; 87081; 87088

== ENCOUNTER 2018-10-10 06:24 | Day surgery (SDC) | payer MEDICARE ==
[~2018-10-10] VITALS: Ht 165.1 cm; Wt 58.1 kg
[2018-10-10] VITALS (10 sets, daily range): BP systolic 100–137; BP diastolic 66–85
[2018-10-10 06:48] LABS: BASOPHILS % (AUTO) 0 % (0-10); EOSINOPHILS # (AUTO) 0.1 10^3/uL (0.0-0.3); EOSINOPHILS % (AUTO) 1 % (0-10); HEMATOCRIT 30 % (40-54); HEMOGLOBIN 9.2 G/DL (13.3-17.7); LYMPHOCYTES # (AUTO) 1.4 X 10^3 (1.0-4.0); LYMPHOCYTES % (AUTO) 35 % (12-44); MEAN CORPUSCULAR HEMOGLOBIN 29 PG (25-34); MEAN CORPUSCULAR HGB CONC 31 G/DL (32-36); MEAN CORPUSCULAR VOLUME 96 FL (80-99); MEAN PLATELET VOLUME 9.1 FL (7.4-10.4); MONOCYTES # (AUTO) 0.6 X 10^3 (0.0-1.0); MONOCYTES % (AUTO) 16 % (0-12); NEUTROPHILS # (AUTO) 1.8 X 10^3 (1.8-7.8); NEUTROPHILS % (AUTO) 47 % (42-75); PLATELET COUNT 226 10^3/uL (130-400); RED CELL DISTRIBUTION WIDTH 19.7 % (10.0-14.5); WHITE BLOOD COUNT 3.9 10^3/uL (4.3-11.0)
[2018-10-10] MEDS ORDERED: cefTRIAXone FOR IV USE 1,000 MG in WATER (STERILE) FOR INJECTION 10 ML IV ONE (07:00)
[2018-10-10] MEDS: LACTATED RINGERS 1,000 ML IV PRN ×2 (07:00→10:20)
[2018-10-10 07:05] LABS: CALCIUM 7.9 MG/DL (8.5-10.1); CREATININE SERUM 1.25 MG/DL (0.60-1.30); POTASSIUM 4.1 MMOL/L (3.6-5.0)
[2018-10-10] MEDS ORDERED: NEOSTIGMINE 3 MG/3 ML VIAL ONE (07:11)
[2018-10-10] MEDS ORDERED: proPOfol 200 MG/20 ML (DIPRIVAN) VIAL IV ONE (07:11)
[2018-10-10] MEDS ORDERED: LIDOCAINE PF 2% 5 ML (XYLOCAINE) VIAL ONE (07:11)
[2018-10-10] MEDS ORDERED: GLYCOPYRROLATE 0.2 MG/ML (ROBINUL) 2 ML VIAL ONE (07:11)
[2018-10-10] MEDS ORDERED: ROCURONIUM 10 MG/ML 5 ML SYRINGE IV ONE (07:11)
[2018-10-10] MEDS ORDERED: fentaNYL INJECTION 100 MCG/2 ML AMP ONE (07:11)
[2018-10-10] MEDS ORDERED: DEXAMETHASONE 10 MG/ML (DECADRON) 1 ML VIAL ONE (07:11)
[2018-10-10] MEDS ORDERED: ONDANSETRON 4 MG/2 ML (SDV) Z0FRAN ONE (07:11)
[2018-10-10] MEDS ORDERED: SEVOFLURANE (ULTANE) 15 ML INHAL SOLN ONE (07:11)
[2018-10-10] MEDS ORDERED: cefTRIAXone 1,000 MG IV (ROCEPHIN) VIAL ONE (07:12)
--- NOTE | 2018-10-10 07:13 | Progress Note-Pre Operative ---
Pre-Operative Progress Note H&P Reviewed The H&P was reviewed, patient examined and no changes noted. Date Seen by Provider: Oct 10, 2018 Time Seen by Provider: 07:13 Date H&P Reviewed: Oct 10, 2018 Time H&P Reviewed: 07:13 Pre-Operative Diagnosis: LARGE BLADDER TUMOR SARA GONZALEZ MD Oct 10, 2018 07:13
--- NOTE | 2018-10-10 07:18 | Progress Note-Post Operative ---
Post-Operative Progess Note Surgeon (s)/Systems Consultant (s) Surgeon SARA GONZALEZ MD Systems Consultant: NONE Pre-Operative Diagnosis LARGE BLADDER TUMOR Post-Operative Diagnosis SAME Procedure & Operative Findings Date of Procedure 10/10/18 Procedure Performed/Findings TURBT Anesthesia Type GENERAL Estimated Blood Loss Estimated blood loss (mL): NEGLIGIBLE Specimens/Packing Specimens Removed BLADDER TUMOR AND BASE Packing: NONE SARA GONZALEZ MD Oct 10, 2018 07:18
[2018-10-10] MEDS ORDERED: APIX2.5T PO (07:25)
[2018-10-10] MEDS ORDERED: ASPI-586 PO (07:25)
[2018-10-10] MEDS ORDERED: PHENYLEPHRINE 100 MCG/ML 10 ML (ANESTHESIA) SYR ONE (08:07)
--- NOTE | 2018-10-10 08:41 | Discharge Inst-Urology ---
Discharge Inst-Urology Reconcile Patient Problems Problems Reviewed?: Yes Patient Instructions/Follow Up Plan/Assessment/Instructions Please make appointment to been seen in office in 2 weeks. May resume Plavix on Tuesday if no bleeding. Stay off ASA Keep bowels soft and moving Increase oral fluids for 48 hours and then as needed. Diet and Activity as tolerated. If questions or concerns contact your physician Or seek help at emergency department. SARA GONZALEZ MD Oct 10, 2018 08:41
[2018-10-10] MEDS ORDERED: HYDROmorphone 2 MG/ML VIAL (DILAUDID) IV ONE (09:00)
[2018-10-10] MEDS ORDERED: ONDANSETRON 4 MG/2 ML (SDV) Z0FRAN IVP PRN (09:00)
[2018-10-10] MEDS ORDERED: PHEN-640 PO (09:00)
[2018-10-10] MEDS ORDERED: CIPR-225 PO (09:00)
[2018-10-10] MEDS ORDERED: HYOS0.1281 PO (09:00)
--- NOTE | 2018-10-10 10:07 | OPERATIVE REPORT ---
DATE OF SERVICE: 10/10/2018 PREOPERATIVE DIAGNOSIS: Large bladder tumor. POSTOPERATIVE DIAGNOSIS: Large bladder tumor. OPERATION PERFORMED: Transurethral resection of large bladder tumor. SURGEON: Sara Gonzalez MD ANESTHESIA: General. COMPLICATIONS: None. DESCRIPTION OF PROCEDURE: Under satisfactory general anesthesia, the patient in lithotomy position, genitalia were prepped and draped in the usual sterile fashion. Urethra was dilated with Fred sound to #30 British easily to accommodate a 27-British Summers resectoscope. Again, visualized a single large bladder tumor in the left lateral wall very close to the left ureteral orifice, I went ahead and completely resected it and sent several portion from the base. Cauterized all the bleeders and hemostasis was complete. I could visualize the left ureteral orifice with clear efflux. Hemostasis was complete. No need for catheter. The bladder was evacuated and the resectoscope was removed after confirming no more bladder tumors. Estimated blood loss was negligible. The patient tolerated the procedure and anesthesia well and was sent to recovery room in stable condition. Job ID: [id number] DocumentID: [id number] Dictated Date: 10/10/2018 08:43:35 Palliative Care Nurse Practitioner Date: 10/10/2018 10:07:06 Dictated By: SARA GONZALEZ MD
[2018-10-10] MEDS ORDERED: LIDOCAINE UROJET 2% GEL 10 ML PKG ONE (12:25)
--- NOTE | 2018-10-10 12:25 | NUR ---
THIS RN PHONED DR. GONZALEZ TO REPORT PATIENT ONLY HAS OUT 25ML RED URINE, HAS HAD LR 2L AND INTAKE OF 660. GAVE TELEPHONE ORDER TO PLACE PEDROZA CATHETER AND HAVE COME TO OFFICE AT 0900 IN MORNING 10/11 TO HAVE PEDROZA REMOVED. AT [address] 16F PEDROZA CATHETER WITH UROJET AND 200CC RED URINE. THIS RN PLACE 4L BAG FOR PATIENT TO TAKE HOME AND GAVE INSTRUCTIONS TO PATIENT AND . THEY VERBALIZED UNDERSTANDING. MEDICATIONS PHONED TO [facility] fluid Operations. Addendum: 10/10/18 at 1354 by JAN RAYMOND RN 1225 PATIENT HAS TRIED MULTIPLE TIMES TO VOID SITTING ON EDGE BED AND STANDING WITH NO RESULTS BUT 25ML
[2018-10-10] MEDS ORDERED: LIDOCAINE UROJET 2% GEL 10 ML PKG TOP ONE (12:30)
--- NOTE | 2018-10-10 12:44 | Anesthesia-General Post-Op ---
General Patient Condition Mental Status/LOC: Same as Preop Cardiovascular: Satisfactory Nausea/Vomiting: Absent Respiratory: Satisfactory Pain: Controlled Complications: Absent Post Op Complications Complications None Follow Up Care/Instructions Patient Instructions None needed. Anesthesia/Patient Condition Patient Condition Patient is doing well, no complaints, stable vital signs, no apparent adverse anesthesia problems. No complications reported per nursing. BRYAN HUFF CRNA Oct 10, 2018 12:44
== END 2018-10-10 13:10 | disposition home or self-care (01) ==
LOC: SDC 06:24
PROVIDERS: ATTEND Urology
DX: C67.9 Malignant neoplasm of bladder, unspecified (principal); I10 Essential (primary) hypertension; I48.91 Unspecified atrial fibrillation; N40.1 Benign prostatic hyperplasia with lower urinary tract symptoms; E78.5 Hyperlipidemia, unspecified; J44.9 Chronic obstructive pulmonary disease, unspecified; E03.9 Hypothyroidism, unspecified; D64.9 Anemia, unspecified; R06.02 Shortness of breath; R31.0 Gross hematuria; Z87.891 Personal history of nicotine dependence; Z95.1 Presence of aortocoronary bypass graft; Z98.61 Coronary angioplasty status; Z90.89 Acquired absence of other organs; Z79.01 Long term (current) use of anticoagulants; Z79.899 Other long term (current) drug therapy; Z79.82 Long term (current) use of aspirin
CPT/HCPCS: 36415; 80048; 85025; 86850; 86900; 86901